=== PATIENT | female | born 1975 | race Caucasian/White ===

== ENCOUNTER 2017-01-03 22:01 | Observation (INO) ==
[2017-01-03 23:29] LABS: Bilirubin,Urine Negative (Negative); Blood,Urine Moderate (Negative); Clarity,Urine Turbid (Clear); Color,Urine Yellow (Yellow); Glucose,Urine (UA) Normal (Normal); Ketones,Urine Negative (Negative); Leukocyte Esterase,Urine Moderate (Negative); Nitrite,Urine Negative (Negative); PH,Urine 7.5 pH Units (5.0-8.0); Protein,Urine 30 mg/dL (Neg-Trace); Specific Gravity,Urine 1.023 (1.010-1.025); Urobilinogen,Urine Normal (Normal)
[2017-01-03 23:34] LABS: Amorphous Sediment,Urine Moderate (Few)
[2017-01-03 23:35] LABS: Bacteria,Urine Moderate per hpf (None-Few); Squamous Epithelial Cell,Urine Many per lpf (None-Few)
[2017-01-03] MEDS ORDERED: Ondansetron 4 MG/2 ML VIAL IVP ONE (23:39)
[2017-01-03] MEDS ORDERED: 0.9 % Sodium Chloride 1,000 ML IVC ONE (23:39)
[2017-01-03] MEDS ORDERED: Ketorolac 30 MG/ML VIAL IVP ONE (23:39)
--- NOTE | 2017-01-03 23:53 | Emergency Department Note ---
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 Urinary tract infection Qualifiers: Urinary tract infection type: site unspecified Hematuria presence: with hematuria Qualified Code(s): N39.0 - Urinary tract infection, site not specified Disposition: Admitted As Inpatient Condition: Fair Referrals: NO,PCP [Primary Care Provider] - Forms: ED Satisfaction Letter Time of Disposition: 00:58 General Adult HPI - General Chief complaint: ED Urogenital-Female Stated complaint: kidney stone Time Seen by Provider: 01/03/17 23:32 Source: patient Limitations: no limitations Nursing Notes Reviewed: Yes Vital Signs Reviewed: Yes - History of Present Illness HPI Narrative: Alert and oriented 41-year-old female presents for evaluation of "I think I have a kidney stone". The patient states that earlier this afternoon, she noticed a slight pain in her right flank. She states that ever since then, the pain has gradually worsened. She denies any prisca hematuria but states that " my urine has been getting darker". She denies any dysuria, frequency, or urgency. She also complains of being extremely nauseated and several episodes of emesis since symptoms began. She denies any abdominal pain or diarrhea. She states a history of kidney stones in the past and that these symptoms are similar to previous episodes. Pt Subjective Complaint: "Kidney stone" Onset (ago): hour(s) (Earlier this afternoon) Location: other (Right flank) Pain Severity: severe, similar to prior episodes Pain Scale: 8 Consistency: Worsening Improves with: nothing Worsens with: movement Associated symptoms: Reports: nausea/vomiting. Denies: fever/chills Treatments Prior to Arrival: none - Related Data Allergies Allergy/AdvReac Type Severity Reaction Status Date / Time codeine AdvReac Hives Verified 01/03/17 22:03 doxycycline AdvReac Hives Verified 01/03/17 22:02 All systems ED: reviewed and negative except as stated. Constitutional: Denies: fever, chills, weakness, weight change Eyes: Denies: eye pain, eye discharge, vision change ENT ED: Denies: ear pain, throat pain, dental pain, hearing loss, epistaxis, congestion, dysphagia Cardiovascular: Denies: chest pain, palpitations, dyspnea on exertion, edema, syncope Respiratory: Denies: cough, dyspnea, wheezes, hemoptysis, stridor Gastrointestinal: Denies: abdominal pain, nausea, vomiting, diarrhea, constipation, hematemesis, melena, hematochezia Genitourinary: Reports: as per HPI, other ("Dark colored urine"). Denies: dysuria, frequency, hematuria, discharge Musculoskeletal: Reports: as per HPI, other (Right flank pain). Denies: back pain, neck pain, arthralgia, myalgia Integumentary: Denies: rash, abrasion, lesions Neurological: Denies: headache, weakness, numbness, paresthesias, confusion, abnormal gait, vertigo Psychiatric: Denies: anxiety, depression, suicidal thoughts, homicidal thoughts , auditory hallucinations, visual hallucinations Endocrine: Denies: fatigue Hematological/Lymphatic: Denies: easy bleeding, easy bruising Allergic/Immunologic: Denies: facial swelling, urticaria Past Medical History - Past Medical History Attestation: Yes The following information was validated with the patient. Source: patient Medical history: Reports: kidney stones, other Psychiatric history: Reports: bipolar - Social History Smoking Status: Current every day smoker Smokeless Tobacco Status: No Alcohol use: Reports: none Drug use: Reports: none Physical Exam - General Limitations: no limitations General appearance: alert - Head Head exam: atraumatic, normocephalic, normal inspection - Eye Eye exam: Present: normal appearance, PERRL, EOMI. Absent: nystagmus - ENT ENT exam: mucous membranes moist - Neck Neck exam: Present: normal inspection, full ROM, trachea midline - Chest Chest inspection: Present: normal inspection, symmetric chest wall rise - Respiratory Respiratory exam: Present: normal lung sounds bilaterally. Absent: respiratory distress, wheezes, stridor, accessory muscle use, prolonged expiratory phase - Cardiovascular Cardiovascular exam: Present: regular rate, normal rhythm, normal heart sounds - Abdominal Exam Abdominal exam: Present: soft, Non-Tender, normal bowel sounds. Absent: tenderness, distention, guarding, rebound, rigidity - Extremities Exam Extremities exam: Present: normal inspection, full ROM. Absent: tenderness, pedal edema - Back Exam Back exam: Present: CVA tenderness (R) (Exquisite). Absent: CVA tenderness (L) - Neurological Exam Neurological exam: Present: alert, oriented X3 - Psychiatric Psychiatric exam: Present: normal affect, normal mood - Skin Skin exam: Present: warm, dry, intact, normal color Course Course Narrative: I have discussed this patient's case with Dr. Knutson. Dr. Knutson has had a [id number] evaluation with the patient. Dr. Knutson recommends consultation with the urologist for further instructions. [id number]: I spoken with Dr. Rowe, urologist principal solutions architect. Dr. Rowe has accepted the patient for admission to his service at this time. Vital Signs Temperature 97.4 F L 01/03/17 22:04 Pulse Rate 66 01/03/17 22:04 Respiratory Rate 18 01/03/17 22:04 Blood Pressure 109/74 01/03/17 22:04 O2 Sat by Pulse Oximetry 100 01/03/17 22:04 Temperature 97.4 F L 01/03/17 22:04 Pulse Rate 46 01/04/17 00:43 Respiratory Rate 18 01/04/17 00:43 Blood Pressure 101/65 01/04/17 00:43 O2 Sat by Pulse Oximetry 100 01/04/17 00:43 Oxygen Delivery Oxygen Delivery Room Air Medical Decision Making - Medical Records Medical records reviewed: Yes I reviewed the patient's medical records. - Lab Data Lab results reviewed: Yes I reviewed the patient's lab results. Lab results narrative: Laboratory Last Values WBC 9.9 K/mcL (4.3-11.1) 01/03/17 23:52 RBC 4.14 M/mcL (3.82-4.97) 01/03/17 23:52 Hgb 13.5 g/dL (11.5-15.4) 01/03/17 23:52 Hct 40.3 % (35.3-44.9) 01/03/17 23:52 MCV 97.3 fL (83.0-100.0) 01/03/17 23:52 MCH 32.6 pg (28.0-33.3) 01/03/17 23:52 MCHC 33.5 g/dL (31.6-35.5) 01/03/17 23:52 RDW 12.3 % (11.5-14.5) 01/03/17 23:52 Plt Count 185 K/mcL (140-400) 01/03/17 23:52 MPV 10.7 fL (9.4-12.4) 01/03/17 23:52 Immature Gran % 0.3 % (0-4) 01/03/17 23:52 Seg Neutrophils % 81.2 % 01/03/17 23:52 Lymphocytes % 12.6 % 01/03/17 23:52 Monocytes % 4.5 % 01/03/17 23:52 Eosinophils % 1.0 % 01/03/17 23:52 Basophils % 0.4 % 01/03/17 23:52 Neutrophils # 8.0 K/mcL (1.6-8.9) 01/03/17 23:52 Lymphocytes # 1.2 K/mcL (0.6-4.6) 01/03/17 23:52 Monocytes # 0.4 K/mcL (0.0-1.3) 01/03/17 23:52 Eosinophils # 0.1 K/mcL (0.0-0.6) 01/03/17 23:52 Basophils # 0.0 K/mcL (0.0-0.2) 01/03/17 23:52 Sodium 140 mEq/L (136-145) 01/03/17 23:52 Potassium 4.2 mEq/L (3.5-4.5) 01/03/17 23:52 Chloride 115 mEq/L (98-109) H 01/03/17 23:52 Carbon Dioxide 18 mEq/L (19-29) L 01/03/17 23:52 BUN 15 mg/dL (7-20) 01/03/17 23:52 Creatinine 1.13 mg/dL (0.57-1.11) H 01/03/17 23:52 Est GFR ( Amer) > 60 (> 60) 01/03/17 23:52 Est GFR (Non-Af Amer) 53 (> 60) L 01/03/17 23:52 BUN/Creatinine Ratio 13 (6-26) 01/03/17 23:52 Glucose 107 mg/dL (70-99) H 01/03/17 23:52 Calculated Osmolality 291 (280-300) 01/03/17 23:52 Calcium 8.9 mg/dL (8.6-10.8) 01/03/17 23:52 Urine Color Yellow (Yellow) 01/03/17 23:15 Urine Clarity Turbid (Clear) A 01/03/17 23:15 Urine pH 7.5 pH Units (5.0-8.0) 01/03/17 23:15 Ur Specific [place] 1.023 (1.010-1.025) 01/03/17 23:15 Urine Protein 30 mg/dL (Neg-Trace) H 01/03/17 23:15 Urine Glucose (UA) Normal mg/dL (Normal) 01/03/17 23:15 Urine Ketones Negative mg/dL (Negative) 01/03/17 23:15 Urine Blood Moderate (Negative) H 01/03/17 23:15 Urine Nitrite Negative (Negative) 01/03/17 23:15 Urine Bilirubin Negative (Negative) 01/03/17 23:15 Urine Urobilinogen Normal mg/dL (Normal) 01/03/17 23:15 Ur Leukocyte Esterase Moderate (Negative) H 01/03/17 23:15 Urine Microscopic RBC 5-15 per hpf (0-3) H 01/03/17 23:15 Urine Microscopic WBC 5-15 per hpf (0-3) H 01/03/17 23:15 Ur Squamous Epith Cells Many per lpf (None-Few) H 01/03/17 23:15 Amorphous Sediment Moderate (Few) H 01/03/17 23:15 Urine Bacteria Moderate per hpf (None-Few) H 01/03/17 23:15 Urine Test Negative (Negative) 01/03/17 23:15 Result diagrams: 01/03/17 23:52 01/03/17 23:52 Lab Results 01/03/17 01/03/17 01/03/17 Range/Units 23:15 23:15 23:52 WBC 9.9 (4.3-11.1) K/mcL RBC 4.14 (3.82-4.97) M/mcL Hgb 13.5 (11.5-15.4) g/dL Hct 40.3 (35.3-44.9) % MCV 97.3 (83.0-100.0) fL MCH 32.6 (28.0-33.3) pg MCHC 33.5 (31.6-35.5) g/dL RDW 12.3 (11.5-14.5) % Plt Count 185 (140-400) K/mcL MPV 10.7 (9.4-12.4) fL Immature Gran % 0.3 (0-4) % Seg Neutrophils % 81.2 % Lymphocytes % 12.6 % Monocytes % 4.5 % Eosinophils % 1.0 % Basophils % 0.4 % Neutrophils # 8.0 (1.6-8.9) K/mcL Lymphocytes # 1.2 (0.6-4.6) K/mcL Monocytes # 0.4 (0.0-1.3) K/mcL Eosinophils # 0.1 (0.0-0.6) K/mcL Basophils # 0.0 (0.0-0.2) K/mcL Sodium (136-145) mEq/L Potassium (3.5-4.5) mEq/L Chloride (98-109) mEq/L Carbon Dioxide (19-29) mEq/L BUN (7-20) mg/dL Creatinine (0.57-1.11) mg/dL Est GFR ( Amer) (> 60) Est GFR (Non-Af Amer) (> 60) BUN/Creatinine Ratio (6-26) Glucose (70-99) mg/dL Calculated Osmolality (280-300) Calcium (8.6-10.8) mg/dL Urine Color Yellow (Yellow) Urine Clarity Turbid A (Clear) Urine pH 7.5 (5.0-8.0) pH Units Ur Specific [place] 1.023 (1.010-1.025) Urine Protein 30 H (Neg-Trace) mg/dL Urine Glucose (UA) Normal (Normal) mg/dL Urine Ketones Negative (Negative) mg/dL Urine Blood Moderate H (Negative) Urine Nitrite Negative (Negative) Urine Bilirubin Negative (Negative) Urine Urobilinogen Normal (Normal) mg/dL Ur Leukocyte Esterase Moderate H (Negative) Urine Microscopic RBC 5-15 H (0-3) per hpf Urine Microscopic WBC 5-15 H (0-3) per hpf Ur Squamous Epith Cells Many H (None-Few) per lpf Amorphous Sediment Moderate H (Few) Urine Bacteria Moderate H (None-Few) per hpf Urine Test Negative (Negative) 01/03/17 Range/Units 23:52 WBC (4.3-11.1) K/mcL RBC (3.82-4.97) M/mcL Hgb (11.5-15.4) g/dL Hct (35.3-44.9) % MCV (83.0-100.0) fL MCH (28.0-33.3) pg MCHC (31.6-35.5) g/dL RDW (11.5-14.5) % Plt Count (140-400) K/mcL MPV (9.4-12.4) fL Immature Gran % (0-4) % Seg Neutrophils % % Lymphocytes % % Monocytes % % Eosinophils % % Basophils % % Neutrophils # (1.6-8.9) K/mcL Lymphocytes # (0.6-4.6) K/mcL Monocytes # (0.0-1.3) K/mcL Eosinophils # (0.0-0.6) K/mcL Basophils # (0.0-0.2) K/mcL Sodium 140 (136-145) mEq/L Potassium 4.2 (3.5-4.5) mEq/L Chloride 115 H (98-109) mEq/L Carbon Dioxide 18 L (19-29) mEq/L BUN 15 (7-20) mg/dL Creatinine 1.13 H (0.57-1.11) mg/dL Est GFR ( Amer) > 60 (> 60) Est GFR (Non-Af Amer) 53 L (> 60) BUN/Creatinine Ratio 13 (6-26) Glucose 107 H (70-99) mg/dL Calculated Osmolality 291 (280-300) Calcium 8.9 (8.6-10.8) mg/dL Urine Color (Yellow) Urine Clarity (Clear) Urine pH (5.0-8.0) pH Units Ur Specific [place] (1.010-1.025) Urine Protein (Neg-Trace) mg/dL Urine Glucose (UA) (Normal) mg/dL Urine Ketones (Negative) mg/dL Urine Blood (Negative) Urine Nitrite (Negative) Urine Bilirubin (Negative) Urine Urobilinogen (Normal) mg/dL Ur Leukocyte Esterase (Negative) Urine Microscopic RBC (0-3) per hpf Urine Microscopic WBC (0-3) per hpf Ur Squamous Epith Cells (None-Few) per lpf Amorphous Sediment (Few) Urine Bacteria (None-Few) per hpf Urine Test (Negative) - Radiology Data Radiology results reviewed: Yes I reviewed the patient's radiology results. Abdomen/Pelvis CT 01/03/17 23:39 IMPRESSION: Right hydronephrosis with 6 mm proximal right ureteral stone at or just beyond the right ureteropelvic junction. Bilateral nephrolithiasis. D/ / Ame Hutchins Cha, MD / Ame Hutchins Cha, MD Interpreting Provider: Ame Hutchins Cha, MD Attestation Statement - Attestation Attestation: I, Edil Knutson DO have provided [id number] time during the care of this patient. Detailed review the presentation, symptoms, medical history were discussed and reviewed with the mid-level provider Kelton De La Torre PA-C/[employer]. Medical intervention labs and imaging studies were reviewed in detail. See full documentation of physical exam and course of care in the mid-level provider's note. I agree with the determined course of care, medical interventio,n and disposition put forth by the mid-level provider. See below documentation for changes or alterations in documentation. . A 41-year-old female presents emergency room right-sided flank pain and discomfort. 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 Patient found a 6 mm obstructing stone in the proximal ureter. She has passed stones up to 8 mm in the past. She describes always having hydronephrosis and no other symptoms. Labs reviewed. She has no acute signs of infection or urinary process at this time. Pain to be controlled here. Patient does have bacteria and the cholesterol is in the urine. There is concern for infectious and obstructed stone. Patient be started on IV antibiotics here. Consultation placed to the on-call urologist Dr. Rowe. Disposition to be completed in conjunction with the urology consultation. Patient will be admitted for definitive management. See detailed documentation of the admission process and notes and consultations. The nurse practitioner's chart
[2017-01-04 00:02] LABS: Basophils % 0.4 %; Eosinophils # 0.1 K/mcL (0.0-0.6); Hematocrit 40.3 % (35.3-44.9); Hemoglobin 13.5 g/dL (11.5-15.4); Immature Granulocytes % 0.3 % (0-4); Lymphocytes # 1.2 K/mcL (0.6-4.6); Lymphocytes % 12.6 %; Mean Corpuscular HGB Conc 33.5 g/dL (31.6-35.5); Mean Corpuscular Hemoglobin 32.6 pg (28.0-33.3); Mean Corpuscular Volume 97.3 fL (83.0-100.0); Mean Platelet Volume 10.7 fL (9.4-12.4); Monocytes # 0.4 K/mcL (0.0-1.3); Monocytes % 4.5 %; Platelet Count 185 K/mcL (140-400); Red Blood Count 4.14 M/mcL (3.82-4.97); Red Cell Distribution Width 12.3 % (11.5-14.5); Segmented Neutrophils % 81.2 %
[2017-01-04 00:16] LABS: BUN/Creatinine Ratio 13 (6-26); Blood Urea Nitrogen 15 mg/dL (7-20); Calcium 8.9 mg/dL (8.6-10.8); Carbon Dioxide 18 mEq/L (19-29); Chloride 115 mEq/L (98-109); Glucose 107 mg/dL (70-99); Osmolality,Calculated 291 (280-300); Potassium 4.2 mEq/L (3.5-4.5); Sodium 140 mEq/L (136-145); eGFR For African Americans > 60 (> 60); eGFR For Non-African Americans 53 (> 60)
[2017-01-04] MEDS ORDERED: Ondansetron 4 MG/2 ML VIAL IVP PRN ×2 (01:07→11:22)
[2017-01-04] MEDS ORDERED: Naloxone 0.4 MG/ML INJ IVP PRN ×4 (01:07→11:22)
[2017-01-04] MEDS ORDERED: *HR* Morphine 2 MG/ML SYRINGE IVP PRN ×2 (01:07→11:22)
[2017-01-04] MEDS ORDERED: *HR* Promethazine 25 MG/ML VIAL IVP PRN ×4 (01:07→11:22)
[2017-01-04] MEDS ORDERED: 0.9 % Sodium Chloride 1,000 ML IVC SCH ×2 (01:15→11:22)
[2017-01-04] MEDS: *HR* HYDROmorphone (PF) 1 MG/ML SYRINGE IVP PRN ×2 (03:50→08:27)
--- NOTE | 2017-01-04 07:10 | Urology History & Physical ---
Date of Encounter: 01/04/17 Time of Encounter: 07:07 Assessment and Plan (1) Ureteral stone with hydronephrosis Current Visit: Yes Status: Acute plan for ureteral stent placement today. I do not feel a stone extraction is safe during this hospitalization because of the possible UTI and large proximal stone. will require staged procedure. (2) Urinary tract infection Current Visit: Yes Status: Acute Rocephin. follow cultures. Qualifiers: Urinary tract infection type: site unspecified Hematuria presence: with hematuria Qualified Code(s): N39.0 - Urinary tract infection, site not specified; R31.9 - Hematuria, unspecified History of Present Illness Chief complaint: flank pain HPI: Ms. Lozada is a 41 year old female known to service with stones. sudden onset of severe flank pain. CT scan - Right hydronephrosis with 6 mm proximal right ureteral stone at or just beyond the right ureteropelvic junction. no fever. Past Med Surg Social Fam HX - Past Medical History Medical history: kidney stones Psychiatric history: bipolar - Social History Smoking Status: Current every day smoker Packs per day: 1 Smokeless Tobacco Status: No Alcohol use: none Drug use: none - Family History Mother Hx Family Cardiac Disorders: Yes Father Hx Family Cancer: Yes (prostate) Medications and Allergies Allergies codeine Adverse Reaction (Verified 01/03/17 22:03) Hives doxycycline Adverse Reaction (Verified 01/03/17 22:02) Hives Review of Systems - Constitutional malaise, no fever(s) - EENT Nose, mouth and throat: no dizziness - Cardiovascular no chest pain - Respiratory no cough - Gastrointestinal abdominal pain, nausea, vomiting - Genitourinary Genitourinary: flank pain - Musculoskeletal back pain - Integumentary no erythema - Neurological no confusion - Psychiatric no anxiety - Hematologic/Lymphatic no easy bleeding - Allergic/Immunologic no throat swelling Exam Initial Vital Signs Temp Pulse Resp BP Pulse Ox 97.4 F L 66 18 109/74 100 01/03/17 22:04 01/03/17 22:04 01/03/17 22:04 01/03/17 22:04 01/03/17 22:04 - General physical appearance Present: well developed, well nourished - Eyes Present: PERRL - ENT Present: normal nares - Neck Present: no masses - Respiratory Present: normal respiratory effort - Cardiovascular Cardiovascular exam IM: RRR - Abdomen Abdomen: Present: soft - Integumentary Present: no rash - Neurologic Present: normal coordination - Musculoskeletal Present: normal gait (right CVa tender. ) Urology Results - Labs 01/03/17 23:52 01/03/17 23:52 Abnormal lab results Chloride 115 mEq/L (98-109) H 01/03/17 23:52 Carbon Dioxide 18 mEq/L (19-29) L 01/03/17 23:52 Creatinine 1.13 mg/dL (0.57-1.11) H 01/03/17 23:52 Est GFR (Non-Af Amer) 53 (> 60) L 01/03/17 23:52 Glucose 107 mg/dL (70-99) H 01/03/17 23:52 POC Glucose 101 (58-89) H 01/04/17 05:40 Urine Clarity Turbid (Clear) A 01/03/17 23:15 Urine Protein 30 mg/dL (Neg-Trace) H 01/03/17 23:15 Urine Blood Moderate (Negative) H 01/03/17 23:15 Ur Leukocyte Esterase Moderate (Negative) H 01/03/17 23:15 Urine Microscopic RBC 5-15 per hpf (0-3) H 01/03/17 23:15 Urine Microscopic WBC 5-15 per hpf (0-3) H 01/03/17 23:15 Ur Squamous Epith Cells Many per lpf (None-Few) H 01/03/17 23:15 Amorphous Sediment Moderate (Few) H 01/03/17 23:15 Urine Bacteria Moderate per hpf (None-Few) H 01/03/17 23:15 All other labs normal.
[2017-01-04] MEDS ORDERED: ALPRAZolam 1 MG TABLET PO PRN ×2 (07:30→11:22)
[2017-01-04] MEDS ORDERED: Sulfamethoxazole/Trimeth DS 1 EACH TABLET PO SCH (09:00)
[2017-01-04] MEDS ORDERED: Topiramate 100 MG TABLET PO SCH ×2 (09:00→21:00)
[2017-01-04] MEDS ORDERED: lamoTRIgine 100 MG TABLET PO SCH ×2 (09:00→21:00)
[2017-01-04] MEDS ORDERED: Albuterol 2.5 MG/3 ML NEBULIZER IH ONE (09:22)
[2017-01-04] MEDS ORDERED: Albuterol 2.5 MG/3 ML NEBULIZER ONE (09:24)
[2017-01-04] MEDS ORDERED: *HR* Midazolam HCl 2 MG/2 ML VIAL ONE (09:53)
[2017-01-04] MEDS ORDERED: *HR* FentaNYL (PF) 100 MCG/2 ML VIAL ONE (09:53)
[2017-01-04] MEDS ORDERED: Lidocaine -MPF 2% 2 ML VIAL ONE (09:53)
[2017-01-04] MEDS ORDERED: *HR* Propofol 200 MG/20 ML VIAL IVP ONE (09:54)
--- NOTE | 2017-01-04 10:01 | Anesthesia Evaluation PreOp ---
Date of Encounter: 01/04/17 Time of Encounter: 09:59 - Past History Planned Operation: C+P and stent Cardiac History: Denies any Significant Hx Pulmonary History: Smoker DONOR CENTER TECHNICIAN History: Other (anxiety depression) Other Medical History: Renal (stones) Anesthesia History: No Prior Anesthetic Complications, Past Anesthesia (cysto and stent) Test: Negative Alcohol Use: none Drug use: none Medications and Allergies Bactrim Ds BID 01/04/17 [History] Strattera 01/04/17 [History] Topiramate [Topamax] 600 mg PO BID 01/04/17 [History] Xanax 1 MG Tablet 1 mg PO BID PRN 01/04/17 [History] lamoTRIgine [Lamictal] 200 mg PO BID 01/04/17 [History] Allergies codeine Adverse Reaction (Verified 01/03/17 22:03) Hives doxycycline Adverse Reaction (Verified 01/03/17 22:02) Hives - Meds/Allergy Pre-op Review Medications Reviewed: Yes Allergies Reviewed: Yes Beta Blockers on Current Med List: No Anesthesia Results - Labs 01/03/17 23:52 01/03/17 23:52 Anesthesia Exam Vital Signs/O2 Sat, Most Current Temp Pulse Resp BP Pulse Ox 98.9 F 62 16 102/59 94 01/04/17 09:23 01/04/17 09:23 01/04/17 09:23 01/04/17 09:23 01/04/17 09:23 Weight: 79kg NPO (# of Hours): >8 - HEENT Pupil (Motor): Pupils equal, EOMI Mallampati: II (chipped uppernR incisor) Oral Opening: Greater than 3 - DONOR CENTER TECHNICIAN LOC: Oriented DONOR CENTER TECHNICIAN Motor: Normal RUE, Normal LUE, Normal RLE, Normal LLE, Normal Face [employer]OR CENTER TECHNICIAN Sensory: Normal: RUE, LUE, RLE, LLE, Face - Cardiac Rhythm: Regular - Pulmonary Breath Sounds: bilateral Clear Respiratory Effort: Symmetrical Anesthesia Assess/Plan ASA Score: 2 Modified Suring Scale for Level of Consciousness: Cooperative, oriented, and tranquil Anesthetic Plan: General (r/b/a discussed, questions answered, consent obtained) Monitoring Plan: Standard Monitors Recovery Plan: PACU
[2017-01-04] MEDS ORDERED: *HR* Meperidine 25 MG/ML SYRINGE IVP PRN ×2 (10:02→11:22)
[2017-01-04] MEDS ORDERED: *HR* HYDROmorphone (PF) 1 MG/ML SYRINGE IVP PRN ×3 (10:02→11:22)
[2017-01-04] MEDS ORDERED: Ringers Solution, Lactated 1,000 ML IVC SCH ×2 (10:15→11:22)
[2017-01-04] MEDS ORDERED: Dexamethasone 4 MG/ML VIAL ONE (10:29)
[2017-01-04] MEDS ORDERED: Ondansetron 4 MG/2 ML VIAL ONE (10:29)
--- NOTE | 2017-01-04 10:51 | Discharge Summary ---
Date of Encounter: 01/04/17 Time of Encounter: 10:47 - Discharge Diagnosis (1) Ureteral stone with hydronephrosis Priority: Primary Status: Resolved (2) Urinary tract infection Priority: Secondary Status: Suspected Qualifiers: Urinary tract infection type: site unspecified Hematuria presence: with hematuria Qualified Code(s): N39.0 - Urinary tract infection, site not specified; R31.9 - Hematuria, unspecified - Discharge Medications Prescriptions: Cefdinir [Omnicef] 300 mg PO BID #14 capsule Oxycodone HCl/Acetaminophen [Percocet 5-325 mg Tablet] 1 each PO Q4H PRN #15 tablet PRN Reason: Pain Phenazopyridine HCl [Pyridium] 200 mg PO TIDAC PRN #20 tab PRN Reason: burning with urination Home Medications: ALPRAZolam [Xanax 1 MG Tablet] 1 mg PO BID PRN tab 01/04/17 [Rx] Cefdinir [Omnicef] 300 mg PO BID #14 capsule 01/04/17 [Rx] Oxycodone HCl/Acetaminophen [Percocet 5-325 mg Tablet] 1 each PO Q4H PRN #15 tablet 01/04/17 [Rx] Phenazopyridine HCl [Pyridium] 200 mg PO TIDAC PRN #20 tab 01/04/17 [Rx] Strattera 01/04/17 [History] Topiramate [Topamax] 600 mg PO BID 01/04/17 [History] Topiramate [Topamax] 600 mg PO BID tab 01/04/17 [Rx] Xanax 1 MG Tablet 1 mg PO BID PRN 01/04/17 [History] lamoTRIgine [Lamictal] 200 mg PO BID 01/04/17 [History] lamoTRIgine [Lamictal] 200 mg PO BID tab 01/04/17 [Rx] Allergies/Adverse Reactions: Allergies codeine Adverse Reaction (Verified 01/03/17 22:03) Hives doxycycline Adverse Reaction (Verified 01/03/17 22:02) Hives Labs on day of discharge: Labs from last 24 hours 01/04/17 05:40 POC Glucose 101 H Date of admission: 01/04/17 01:05 Primary care physician: PCP NO Discharging clinician: Valentin Rowe Anticipated date of discharge: 01/04/17 - Patient Status Disposition: Home, Self-Care Condition: Good Functional capacity at discharge: independent ambulation Overall status at discharge: patient is progressing back to baseline - Discharge Instructions Follow Up With: NO,PCP [Primary Care Provider] - Valentin Rowe MD [Partnered Physician] - (My office will contact patient regarding follow-up.) Additional Instructions: Expect stent discomfort including urgency, frequency, burning on urination, blood in the urine, mild flank discomfort. This is all normal. Patient has no activity restrictions. Call office if temperature over 101 - Diet and Activity Activity: increase activity as tolerated Diet: advance to your usual diet - Hospital Course Hospital course: Ms. Lozada is a 41 year old female admitted with a 6 mm proximal right ureteral calculi. Ureteral stent placed on 01/04. Plan for discharge today or tomorrow depending on postoperative symptoms and vital signs. Patient has not displayed signs or symptoms of sepsis during admission - Time Spent with Patient Total time spent providing and/or coordinating discharge services: Less than 30 minutes Exam Initial Vital Signs Temp Pulse Resp BP Pulse Ox 97.4 F L 66 18 109/74 100 01/03/17 22:04 01/03/17 22:04 01/03/17 22:04 01/03/17 22:04 01/03/17 22:04 - General physical appearance Present: well developed, no distress
--- NOTE | 2017-01-04 10:59 | Operative Note ---
Date of procedure: 01/04/17 Pre-op diagnosis: Right proximal ureteral stone Post-op diagnosis: same Procedure: Cystoscopy. Right retrograde pyelogram. Right ureteral stent placement Anesthesia: GETA Surgeon: Valentin Rowe Estimated blood loss (cc): 0 Specimen: none Condition: stable Disposition: PACU Procedure in Detail: PROCEDURE IN DETAIL: Patient was taken back to the operating room, positioned supine on the operating table. Anesthesia was applied without complication. They were moved into dorsal lithotomy. Careful attention was maintained to cushion all pressure points for patient's safety. They were prepped and draped in sterile fashion. Time-out was performed with the proper patient and procedure. A 21-Syrian rigid cystoscope was inserted into the bladder without difficulty. Systematic examination of bladder revealed no abnormalities. The ureteral orifice was cannulated using a 5-Syrian ureteral Catheter and a retrograde pyelogram was performed using Isovue. Patient had a very tortuous ureter with hydroureter and hydronephrosis. Zip wire was passed through the 5 Syrian ureteral catheter and into the renal pelvis. No purulence drained from the right system. A 4.8 x 26 ureteral stent was placed over the zip wire under fluoroscopy without complication. The bladder was drained
[2017-01-04] MEDS ORDERED: XANAX 1 MG PO PRN (11:22)
[2017-01-04] MEDS ORDERED: *HR* OxyCODONE/APAP 5/325 TABLET PO PRN (11:22)
[2017-01-04 11:33] VITALS: BP 111/71
--- NOTE | 2017-01-04 14:20 | Anesthesia Evaluation Post Op ---
Date of Encounter: 01/04/17 Time of Encounter: 14:19 - Vital Signs Vital Signs: Vital Signs/O2 Sat, Most Current Temp Pulse Resp BP Pulse Ox 98.0 F 60 14 111/71 98 01/04/17 11:32 01/04/17 11:32 01/04/17 11:32 01/04/17 11:32 01/04/17 11:32 - Lungs Lungs: Clear Ascult./Percussion - Airway Airway: Non-obstructed - Cardiovascular Regular Rate - Mental Status Mental Status: Alert & Oriented, Answers Appropriately - Pain Pain Scale: 0 Pain Scale used: Numeric (1 - 10) - Nausea Vomiting Nausea Vomiting: Not Present - Hydration Hydration: Ice chips - Discharge PostOp Status: Transfer Patient to floor
[2017-01-04] MEDS ORDERED: LAMOTRIGINE 200 MG PO SCH (21:00)
[2017-01-04] MEDS ORDERED: TOPIRAMATE PO SCH (21:00)
== END 2017-01-04 12:27 | disposition home or self-care (01) ==
LOC: EMEROO 22:01 → INTOOBSV 01-04 01:05 → 3ANU 01-04 01:05
PROVIDERS: ADMIT Urology; ATTEND Urology

== ENCOUNTER 2019-02-13 01:10 | Observation (INO) ==
[2019-02-13] MEDS ORDERED: Ondansetron 4 MG/2 ML VIAL IVP ONE ×2 (02:10→05:51)
[2019-02-13] MEDS ORDERED: Ketorolac 30 MG/ML VIAL IVP ONE (02:10)
[2019-02-13] MEDS ORDERED: 0.9 % Sodium Chloride 1,000 ML IVC ONE (02:10)
[2019-02-13] MEDS ORDERED: *HR* HYDROmorphone (PF) 1 MG/ML SYRINGE IVP ONE ×2 (03:00→05:51)
[2019-02-13 03:01] LABS: Basophils # 0.1 K/mcL (0.0-0.2); Basophils % 0.5 %; Eosinophils # 0.2 K/mcL (0.0-0.6); Eosinophils % 1.5 %; Hematocrit 40.1 % (35.3-44.9); Immature Granulocytes % 0.3 % (0-4); Lymphocytes # 2.1 K/mcL (0.6-4.6); Lymphocytes % 20.7 %; Mean Corpuscular HGB Conc 32.4 g/dL (31.6-35.5); Mean Corpuscular Hemoglobin 30.9 pg (28.0-33.3); Mean Corpuscular Volume 95.2 fL (83.0-100.0); Monocytes # 0.9 K/mcL (0.0-1.3); Monocytes % 8.9 %; Platelet Count 206 K/mcL (140-400); Red Blood Count 4.21 M/mcL (3.82-4.97); Red Cell Distribution Width 12.6 % (11.5-14.5); Segmented Neutrophils % 68.1 %; White Blood Count 10.3 K/mcL (4.3-11.1)
[2019-02-13 03:05] LABS: Alanine Aminotransferase 12 Units/L (7-52); Albumin 4.3 g/dL (3.5-5.7); Albumin/Globulin Ratio 1.7 (1.1-2.2); Alkaline Phosphatase 58 Units/L (34-104); Amylase 37 Units/L (29-103); Aspartate Amino Transferase 12 Units/L (13-39); BUN/Creatinine Ratio 11 (6-26); Bilirubin,Direct 0.1 mg/dL (0.0-0.2); Bilirubin,Indirect 0.2 mg/dL (0.0-1.2); Bilirubin,Total 0.3 mg/dL (0.3-1.0); Blood Urea Nitrogen 12 mg/dL (6-20); Calcium 9.4 mg/dL (8.6-10.3); Carbon Dioxide 19 mEq/L (23-29); Chloride 115 mEq/L (98-107); Globulin 2.5 g/dL (2.4-3.5); Glucose 104 mg/dL (70-105); Lipase 27 Units/L (11-82); Osmolality,Calculated 290 (280-300); Potassium 3.9 mEq/L (3.5-5.1); Sodium 140 mEq/L (136-145); Total Protein 6.8 g/dL (6.4-8.9); eGFR For African Americans > 60 (> 60); eGFR For Non-African Americans 53 (> 60)
[2019-02-13 04:11] LABS: Bilirubin,Urine Negative (Negative); Blood,Urine Negative (Negative); Clarity,Urine Cloudy (Clear); Color,Urine Yellow (Yellow); Glucose,Urine (UA) Normal (Normal); Ketones,Urine Negative (Negative); Leukocyte Esterase,Urine Moderate (Negative); Nitrite,Urine Negative (Negative); PH,Urine 6.5 pH Units (5.0-8.0); Protein,Urine Trace mg/dL (Neg-Trace); Specific Gravity,Urine 1.022 (1.010-1.025); Urobilinogen,Urine Normal (Normal)
[2019-02-13 04:12] LABS: Bacteria,Urine Few per hpf (None-Few); Squamous Epithelial Cell,Urine Many per lpf (None-Few); WBC,Urine 30-50 per hpf (0-3)
[2019-02-13] MEDS ORDERED: Naloxone 0.4 MG/ML INJ IVP PRN ×2 (06:36→16:09)
[2019-02-13] MEDS ORDERED: cefTRIAXone 1,000 MG in Water for inj. (sterile) 10 ML IVPB SCH (07:27)
[2019-02-13] MEDS ORDERED: Ketorolac 15 MG/ML VIAL IVP PRN (08:30)
[2019-02-13] MEDS ORDERED: *HR* Propofol 200 MG/20 ML VIAL IVP ONE (13:58)
[2019-02-13] MEDS ORDERED: *HR* FentaNYL (PF) 100 MCG/2 ML VIAL ONE (13:58)
[2019-02-13] MEDS ORDERED: Ondansetron 4 MG/2 ML VIAL ONE (13:58)
[2019-02-13] MEDS ORDERED: *HR* Midazolam HCl 2 MG/2 ML VIAL ONE (13:58)
[2019-02-13] MEDS ORDERED: Lidocaine -MPF 2% 2 ML VIAL ONE (13:58)
[2019-02-13] MEDS ORDERED: Ondansetron 4 MG/2 ML VIAL IVP PRN ×2 (14:00→16:09)
[2019-02-13] MEDS ORDERED: EPHEDrine 50 MG/ML VIAL ONE (14:28)
[2019-02-13] MEDS ORDERED: Dexamethasone 4 MG/ML VIAL ONE (14:30)
[2019-02-13] MEDS ORDERED: Ketorolac 30 MG/ML VIAL ONE (14:57)
[2019-02-13] MEDS: *HR* HYDROmorphone (PF) 1 MG/ML SYRINGE IVP PRN ×4 (15:16→15:35)
[2019-02-13 18:09] VITALS: BP 99/67
[2019-02-14] MEDS ORDERED: cefTRIAXone 1,000 MG in Water for inj. (sterile) 10 ML IVPB SCH (09:00)
[2019-02-17 21:50] LABS: Calculi Mass 63 mg
== END 2019-02-13 18:24 | disposition home or self-care (01) ==
LOC: EMEROOARM 01:10 → 3BNU 01:10 → SUATTDRO 05:45 → 3BNU 06:17
PROVIDERS: ADMIT Family Medicine; ATTEND Internal Medicine

== ENCOUNTER 2019-07-22 13:55 | Inpatient (IN) ==
[2019-07-22] MEDS ORDERED: Ketorolac 30 MG/ML VIAL IVP ONE (15:41)
[2019-07-22] MEDS ORDERED: 0.9 % Sodium Chloride 1,000 ML IVC ONE ×2 (15:41→17:27)
[2019-07-22] MEDS ORDERED: Ondansetron 4 MG/2 ML VIAL IVP ONE (15:41)
[2019-07-22] MEDS ORDERED: levoFLOXacin 750 MG/150 ML 750 MG/150 ML BAG IVPB ONE (16:43)
[2019-07-22] MEDS ORDERED: Ipratropium/Albuterol Neb 3 ML IH ONE (17:27)
[2019-07-22 17:37] LABS: Basophils % 0.3 %; Hematocrit 43.5 % (35.3-44.9); Hemoglobin 14.5 g/dL (11.5-15.4); Immature Granulocytes % 0.3 % (0-4); Lymphocytes # 0.6 K/mcL (0.6-4.6); Lymphocytes % 18.5 %; Mean Corpuscular HGB Conc 33.3 g/dL (31.6-35.5); Mean Corpuscular Volume 92.9 fL (83.0-100.0); Monocytes # 0.2 K/mcL (0.0-1.3); Monocytes % 6.4 %; Neutrophils # 2.2 K/mcL (1.6-8.9); Platelet Count 75 K/mcL (140-400); Red Blood Count 4.68 M/mcL (3.82-4.97); Red Cell Distribution Width 12.6 % (11.5-14.5); Segmented Neutrophils % 74.5 %
[2019-07-22 17:55] LABS: BUN/Creatinine Ratio 20 (6-26); Blood Urea Nitrogen 21 mg/dL (6-20); Calcium 8.1 mg/dL (8.6-10.3); Carbon Dioxide 17 mEq/L (23-29); Chloride 111 mEq/L (98-107); Glucose 138 mg/dL (70-105); Osmolality,Calculated 287 (280-300); Potassium 3.3 mEq/L (3.5-5.1); Sodium 136 mEq/L (136-145); eGFR For African Americans > 60 (> 60); eGFR For Non-African Americans 57 (> 60)
[2019-07-22] MEDS ORDERED: Naloxone 0.4 MG/ML INJ IVP PRN (18:13)
[2019-07-22] MEDS ORDERED: Ipratropium/Albuterol Neb 3 ML IH PRN (18:16)
[2019-07-22] MEDS: ALPRAZolam 1 MG TABLET PO PRN (20:06)
[2019-07-22] MEDS: 0.9 % Sodium Chloride 1,000 ML IVC SCH (20:07)
[2019-07-23] MEDS: Ondansetron 4 MG/2 ML VIAL IVP PRN ×3 (01:18→17:23)
[2019-07-23] MEDS ORDERED: Acetaminophen 325 MG TABLET PO ONE (03:17)
[2019-07-23 05:42] LABS: BUN/Creatinine Ratio 15 (6-26); Blood Urea Nitrogen 13 mg/dL (6-20); Calcium 7.7 mg/dL (8.6-10.3); Carbon Dioxide 14 mEq/L (23-29); Chloride 113 mEq/L (98-107); Glucose 138 mg/dL (70-105); Osmolality,Calculated 278 (280-300); Potassium 2.9 mEq/L (3.5-5.1); Sodium 133 mEq/L (136-145); eGFR For African Americans > 60 (> 60); eGFR For Non-African Americans > 60 (> 60)
[2019-07-23 06:00] LABS: Basophils % 0.4 %; Hematocrit 34.6 % (35.3-44.9); Hemoglobin 12.6 g/dL (11.5-15.4); Immature Granulocytes % 0.9 % (0-4); Lymphocytes % 31.1 %; Mean Corpuscular HGB Conc 36.4 g/dL (31.6-35.5); Mean Corpuscular Hemoglobin 31.3 pg (28.0-33.3); Mean Platelet Volume 11.7 fL (9.4-12.4); Monocytes # 0.1 K/mcL (0.0-1.3); Monocytes % 3.4 %; Neutrophils # 1.5 K/mcL (1.6-8.9); Red Blood Count 4.02 M/mcL (3.82-4.97); Red Cell Distribution Width 12.6 % (11.5-14.5); Segmented Neutrophils % 64.2 %; White Blood Count 2.4 K/mcL (4.3-11.1)
[2019-07-23 06:02] LABS: Lymphocytes # 0.8 K/mcL (0.6-4.6); Platelet Count 71 K/mcL (140-400)
[2019-07-23 06:04] LABS: Mean Corpuscular Volume 86.1 fL (83.0-100.0)
[2019-07-23 06:22] LABS: Platelet Estimate Decreased (Normal)
[2019-07-23] MEDS: 0.9 % Sodium Chloride 1,000 ML IVC SCH ×4 (08:20→17:56)
[2019-07-23] MEDS: Potassium Chloride Elixir 20 MEQ/15 ML UDC PO SCH ×2 (09:15→20:27)
[2019-07-23] MEDS: Acetaminophen 325 MG TABLET PO PRN ×3 (09:16→20:26)
[2019-07-23] MEDS: lamoTRIgine 100 MG TABLET PO SCH ×3 (09:17→20:26)
[2019-07-23] MEDS: levoFLOXacin 750 MG/150 ML 750 MG/150 ML BAG IVPB SCH (09:17)
[2019-07-23] MEDS: Topiramate 100 MG TABLET PO SCH ×3 (09:28→20:26)
[2019-07-23] MEDS ORDERED: *HR* Promethazine 25 MG/ML VIAL IVP ONE (10:32)
[2019-07-23] MEDS ORDERED: 0.9 % Sodium Chloride 1,000 ML IVC ONE ×3 (10:32→23:30)
[2019-07-23] MEDS ORDERED: Isovue-370 500 ML BOTTLE IVP ONE (14:45)
[2019-07-23] MEDS: Piperacillin/Tazobactam 3.375 GM in 0.9 % Sodium Chloride Mini Bag 100 ML IVPB SCH ×2 (18:38→23:40)
[2019-07-23] MEDS: Ketorolac 30 MG/ML VIAL IVP PRN (20:25)
[2019-07-23] MEDS: ALPRAZolam 1 MG TABLET PO PRN (20:26)
[2019-07-23 23:36] LABS: ABG Base Excess -9 mEq/L (-2 to 3); ABG HCO3 14 mEq/L (21-27); ABG Oxygen Saturation 91 % (95-98); ABG PCO2 24 mmHg (35-45); ABG PH 7.39 pH Units (7.32-7.45); ABG PO2 59 mmHg (85-104); ABG TCO2 15 mEq/L (20-26)
[2019-07-24] MEDS: 0.9 % Sodium Chloride 1,000 ML IVC SCH ×2 (00:20→07:41)
[2019-07-24] MEDS: Ondansetron 4 MG/2 ML VIAL IVP PRN ×3 (00:32→20:01)
[2019-07-24 03:51] LABS: Hematocrit 38.1 % (35.3-44.9); Hemoglobin 13.1 g/dL (11.5-15.4); Mean Corpuscular HGB Conc 34.4 g/dL (31.6-35.5); Mean Corpuscular Hemoglobin 31.1 pg (28.0-33.3); Mean Corpuscular Volume 90.5 fL (83.0-100.0); Mean Platelet Volume 12.3 fL (9.4-12.4); Monocytes # 0.1 K/mcL (0.0-1.3); Nucleated Red Blood Cells 0.8 /100 WBC (0); Platelet Count 59 K/mcL (140-400); Red Blood Count 4.21 M/mcL (3.82-4.97); Red Cell Distribution Width 13.2 % (11.5-14.5); White Blood Count 2.4 K/mcL (4.3-11.1)
[2019-07-24 03:54] LABS: BUN/Creatinine Ratio 7 (6-26); Blood Urea Nitrogen 6 mg/dL (6-20); Calcium 6.9 mg/dL (8.6-10.3); Carbon Dioxide 12 mEq/L (23-29); Chloride 118 mEq/L (98-107); Glucose 99 mg/dL (70-105); Osmolality,Calculated 280 (280-300); Potassium 3.2 mEq/L (3.5-5.1); Sodium 136 mEq/L (136-145); eGFR For African Americans > 60 (> 60); eGFR For Non-African Americans > 60 (> 60)
[2019-07-24 04:29] LABS: Lymphocytes # 1.1 K/mcL (0.6-4.6); Neutrophils # 1.3 K/mcL (1.6-8.9); Platelet Estimate Decreased (Normal); Reactive Lymphocytes Present (Not Present)
[2019-07-24] MEDS: Ketorolac 30 MG/ML VIAL IVP PRN ×2 (04:52→13:10)
[2019-07-24] MEDS: levoFLOXacin 750 MG/150 ML 750 MG/150 ML BAG IVPB SCH (07:38)
[2019-07-24] MEDS: Topiramate 100 MG TABLET PO SCH ×2 (07:42→20:02)
[2019-07-24] MEDS: lamoTRIgine 100 MG TABLET PO SCH ×2 (07:42→20:02)
[2019-07-24 08:13] LABS: ABG Base Excess -10 mEq/L (-2 to 3); ABG HCO3 14 mEq/L (21-27); ABG Oxygen Saturation 88 % (95-98); ABG PCO2 24 mmHg (35-45); ABG PH 7.36 pH Units (7.32-7.45); ABG PO2 56 mmHg (85-104); ABG TCO2 14 mEq/L (20-26)
[2019-07-24] MEDS ORDERED: Ringers Solution, Lactated 1,000 ML IVC SCH (09:15)
[2019-07-24] MEDS ORDERED: Ringers Solution, Lactated 1,000 ML ONE (09:18)
[2019-07-24 09:39] LABS: VBG Ionized Calcium 1.08 mmol/L (1.15-1.35)
[2019-07-24 10:08] LABS: Magnesium 1.6 mg/dL (1.6-2.6)
[2019-07-24] MEDS: ALPRAZolam 1 MG TABLET PO PRN ×2 (10:31→20:01)
[2019-07-24] MEDS: Calcium Gluconate 1gm/50mL 1 GM/50 ML BAG IVPB PRN (10:44)
[2019-07-24] MEDS: Dexmedetomidine HCl 400 MCG/100 ML MLS IVC SCH (12:41)
[2019-07-24] MEDS: Potassium Phosphate 44 MEQ in 0.9 % Sodium Chloride 250 ML IVPB PRN (12:44)
[2019-07-24] MEDS ORDERED: GuaiFENesin/Codeine Oral Soln 5 ML UDC PO PRN (13:59)
[2019-07-24] MEDS: Acetaminophen 325 MG TABLET PO PRN ×2 (17:45→20:03)
[2019-07-24] MEDS: Ringers Solution, Lactated 1,000 ML IVC SCH (18:09)
[2019-07-24] MEDS: MethylPREDNISolone 40 MG/ML VIAL IVP SCH (18:09)
[2019-07-24 18:39] LABS: ABG Base Excess -10 mEq/L (-2 to 3); ABG HCO3 14 mEq/L (21-27); ABG Oxygen Saturation 96 % (95-98); ABG PCO2 27 mmHg (35-45); ABG PH 7.33 pH Units (7.32-7.45); ABG PO2 86 mmHg (85-104); ABG TCO2 15 mEq/L (20-26); Blood Gas Pressure Support 6 cm H2O
[2019-07-24] MEDS: Ibuprofen 400 MG TABLET PO PRN (20:01)
[2019-07-25] MEDS: Ringers Solution, Lactated 1,000 ML IVC SCH ×3 (02:21→23:50)
[2019-07-25 04:57] LABS: Basophils % 0.7 %; Immature Granulocytes % 0.7 % (0-4); Mean Platelet Volume 11.8 fL (9.4-12.4)
[2019-07-25 04:59] LABS: Hematocrit 37.4 % (35.3-44.9); Hemoglobin 12.6 g/dL (11.5-15.4); Immature Platelets 5.5 % (1.1-6.1); Lymphocytes # 0.8 K/mcL (0.6-4.6); Lymphocytes % 26.4 %; Mean Corpuscular HGB Conc 33.7 g/dL (31.6-35.5); Mean Corpuscular Hemoglobin 30.5 pg (28.0-33.3); Mean Corpuscular Volume 90.6 fL (83.0-100.0); Monocytes # 0.1 K/mcL (0.0-1.3); Monocytes % 3.3 %; Neutrophils # 2.1 K/mcL (1.6-8.9); Red Blood Count 4.13 M/mcL (3.82-4.97); Red Cell Distribution Width 13.8 % (11.5-14.5); Segmented Neutrophils % 68.9 %
[2019-07-25] MEDS: MethylPREDNISolone 40 MG/ML VIAL IVP SCH (05:02)
[2019-07-25 05:03] LABS: ABG Base Excess -9 mEq/L (-2 to 3); ABG HCO3 16 mEq/L (21-27); ABG Oxygen Saturation 96 % (95-98); ABG PCO2 32 mmHg (35-45); ABG PH 7.31 pH Units (7.32-7.45); ABG PO2 91 mmHg (85-104); ABG TCO2 17 mEq/L (20-26)
[2019-07-25 05:04] LABS: Platelet Count 60 K/mcL (140-400)
[2019-07-25] MEDS: *HR* Heparin 5,000 UNIT/ML VIAL SQ SCH ×2 (05:04→17:00)
[2019-07-25 05:19] LABS: Alanine Aminotransferase 21 Units/L (7-52); Albumin 2.8 g/dL (3.5-5.7); Albumin/Globulin Ratio 1.5 (1.1-2.2); Alkaline Phosphatase 60 Units/L (34-104); Aspartate Amino Transferase 56 Units/L (13-39); BUN/Creatinine Ratio 7 (6-26); Bilirubin,Total 0.3 mg/dL (0.3-1.0); Blood Urea Nitrogen 5 mg/dL (6-20); Calcium 7.8 mg/dL (8.6-10.3); Calcium 7.9 mg/dL (8.6-10.3); Carbon Dioxide 13 mEq/L (23-29); Carbon Dioxide 15 mEq/L (23-29); Chloride 122 mEq/L (98-107); Globulin 1.9 g/dL (2.4-3.5); Glucose 125 mg/dL (70-105); Osmolality,Calculated 295 (280-300); Phosphorous 3.2 mg/dL (2.7-4.5); Sodium 143 mEq/L (136-145); Total Protein 4.7 g/dL (6.4-8.9); eGFR For African Americans > 60 (> 60); eGFR For Non-African Americans > 60 (> 60)
[2019-07-25 05:28] LABS: Platelet Estimate Decreased (Normal); Reactive Lymphocytes Present (Not Present)
[2019-07-25 05:53] LABS: VBG Ionized Calcium 1.24 mmol/L (1.15-1.35)
[2019-07-25] MEDS: lamoTRIgine 100 MG TABLET PO SCH ×2 (08:33→20:22)
[2019-07-25] MEDS: Topiramate 100 MG TABLET PO SCH ×2 (08:33→20:26)
[2019-07-25] MEDS: levoFLOXacin 750 MG/150 ML 750 MG/150 ML BAG IVPB SCH (08:34)
[2019-07-25] MEDS: Ibuprofen 400 MG TABLET PO PRN ×2 (09:02→16:57)
[2019-07-25] MEDS: Dexmedetomidine HCl 400 MCG/100 ML MLS IVC SCH (11:41)
[2019-07-25] MEDS: *HR* HYDROcodone/Acet 5/325 mg TABLET PO PRN ×2 (11:45→17:40)
[2019-07-25] MEDS: Acetaminophen 325 MG TABLET PO PRN (20:22)
[2019-07-25] MEDS: ALPRAZolam 1 MG TABLET PO PRN (20:23)
[2019-07-25] MEDS: Ondansetron 4 MG/2 ML VIAL IVP PRN (20:27)
[2019-07-26] MEDS: *HR* HYDROcodone/Acet 5/325 mg TABLET PO PRN ×4 (00:54→22:17)
[2019-07-26] MEDS: Acetaminophen 325 MG TABLET PO PRN (03:57)
[2019-07-26] MEDS: Ibuprofen 400 MG TABLET PO PRN (03:57)
[2019-07-26] MEDS: *HR* Heparin 5,000 UNIT/ML VIAL SQ SCH ×2 (05:09→17:30)
[2019-07-26 05:28] LABS: Basophils % 0.1 %; Mean Corpuscular Volume 90.8 fL (83.0-100.0); Red Cell Distribution Width 14.3 % (11.5-14.5)
[2019-07-26 05:30] LABS: Hematocrit 34.5 % (35.3-44.9); Hemoglobin 11.7 g/dL (11.5-15.4); Immature Granulocytes % 0.7 % (0-4); Immature Platelets 4.2 % (1.1-6.1); Lymphocytes # 1.7 K/mcL (0.6-4.6); Lymphocytes % 23.7 %; Mean Corpuscular HGB Conc 33.9 g/dL (31.6-35.5); Mean Corpuscular Hemoglobin 30.8 pg (28.0-33.3); Monocytes # 0.4 K/mcL (0.0-1.3); Monocytes % 4.9 %; Segmented Neutrophils % 70.6 %; White Blood Count 7.1 K/mcL (4.3-11.1)
[2019-07-26 05:32] LABS: VBG Ionized Calcium 1.26 mmol/L (1.15-1.35)
[2019-07-26 05:34] LABS: Platelet Count 91 K/mcL (140-400)
[2019-07-26 05:55] LABS: BUN/Creatinine Ratio 11 (6-26); Blood Urea Nitrogen 8 mg/dL (6-20); Calcium 7.7 mg/dL (8.6-10.3); Carbon Dioxide 16 mEq/L (23-29); Chloride 119 mEq/L (98-107); Glucose 109 mg/dL (70-105); Magnesium 1.7 mg/dL (1.6-2.6); Osmolality,Calculated 297 (280-300); Phosphorous 2.3 mg/dL (2.7-4.5); Potassium 3.4 mEq/L (3.5-5.1); Sodium 144 mEq/L (136-145); eGFR For African Americans > 60 (> 60); eGFR For Non-African Americans > 60 (> 60)
[2019-07-26 05:58] LABS: Platelet Estimate Decreased (Normal); Reactive Lymphocytes Present (Not Present)
[2019-07-26] MEDS: levoFLOXacin 750 MG/150 ML 750 MG/150 ML BAG IVPB SCH (08:13)
[2019-07-26] MEDS: Topiramate 100 MG TABLET PO SCH ×2 (08:13→19:40)
[2019-07-26] MEDS: lamoTRIgine 100 MG TABLET PO SCH ×2 (08:13→19:40)
[2019-07-26] MEDS: Dexmedetomidine HCl 400 MCG/100 ML MLS IVC SCH ×2 (08:14→17:29)
[2019-07-26] MEDS: Ringers Solution, Lactated 1,000 ML IVC SCH (08:15)
[2019-07-26] MEDS: ALPRAZolam 1 MG TABLET PO PRN (08:31)
[2019-07-26] MEDS: Ondansetron 4 MG/2 ML VIAL IVP PRN ×4 (08:31→19:50)
[2019-07-26 10:59] LABS: Adenovirus Not Detected (Not Detect); Coronavirus 229E Not Detected (Not Detect)
[2019-07-26 11:00] LABS: Coronavirus HKU1 Not Detected (Not Detect); Coronavirus NL63 Not Detected (Not Detect); Coronavirus OC43 Not Detected (Not Detect); Human Metapneumovirus Not Detected (Not Detect); Human Rhinovirus/Enterovirus DETECTED (Not Detect)
[2019-07-26 11:02] LABS: Bordetella Pertussis Not Detected (Not Detect); Chlamydophila pneumoniae Not Detected (Not Detect); Influenza B Not Detected (Not Detect); Mycoplasma pneumoniae Not Detected (Not Detect); Parainfluenza Virus 1 Not Detected (Not Detect); Parainfluenza Virus 2 Not Detected (Not Detect); Parainfluenza Virus 3 Not Detected (Not Detect); Parainfluenza Virus 4 Not Detected (Not Detect); Respiratory Syncytial Virus Not Detected (Not Detect)
[2019-07-26 11:16] LABS: ABG Base Excess -7 mEq/L (-2 to 3); ABG HCO3 17 mEq/L (21-27); ABG Oxygen Saturation 98 % (95-98); ABG PCO2 27 mmHg (35-45); ABG PH 7.39 pH Units (7.32-7.45); ABG PO2 95 mmHg (85-104); ABG TCO2 18 mEq/L (20-26); Blood Gas Modality ST; Blood Gas VT 12 cc
[2019-07-26] MEDS ORDERED: *HR* Codeine Sulfate 30 MG TABLET PO PRN (14:48)
[2019-07-26] MEDS ORDERED: Morphine Sulfate Immed Rel 15 MG TABLET PO PRN (14:56)
[2019-07-26] MEDS: MethylPREDNISolone 40 MG/ML VIAL IVP SCH (17:30)
[2019-07-26] MEDS ORDERED: Furosemide 20 MG/2 ML VIAL IVP ONE (17:52)
[2019-07-26 20:49] LABS: Phosphorous 1.8 mg/dL (2.7-4.5); Potassium 3.9 mEq/L (3.5-5.1)
[2019-07-26] MEDS: Potassium Phosphate 44 MEQ in 0.9 % Sodium Chloride 250 ML IVPB PRN (22:30)
[2019-07-27] MEDS: Ondansetron 4 MG/2 ML VIAL IVP PRN (00:41)
[2019-07-27] MEDS: Dexmedetomidine HCl 400 MCG/100 ML MLS IVC SCH ×6 (04:22→23:39)
[2019-07-27 05:07] LABS: Basophils % 0.2 %; Hematocrit 33.6 % (35.3-44.9); Hemoglobin 11.3 g/dL (11.5-15.4); Immature Granulocytes % 0.7 % (0-4); Lymphocytes % 18.9 %; Mean Corpuscular HGB Conc 33.6 g/dL (31.6-35.5); Mean Corpuscular Hemoglobin 31.5 pg (28.0-33.3); Mean Corpuscular Volume 93.6 fL (83.0-100.0); Mean Platelet Volume 10.9 fL (9.4-12.4); Monocytes # 0.5 K/mcL (0.0-1.3); Monocytes % 9.7 %; Neutrophils # 3.9 K/mcL (1.6-8.9); Platelet Count 121 K/mcL (140-400); Red Blood Count 3.59 M/mcL (3.82-4.97); Red Cell Distribution Width 14.5 % (11.5-14.5); Segmented Neutrophils % 70.5 %; White Blood Count 5.5 K/mcL (4.3-11.1)
[2019-07-27 05:24] LABS: BUN/Creatinine Ratio 11 (6-26); Blood Urea Nitrogen 9 mg/dL (6-20); Calcium 8.1 mg/dL (8.6-10.3); Carbon Dioxide 17 mEq/L (23-29); Chloride 117 mEq/L (98-107); Glucose 113 mg/dL (70-105); Magnesium 2.2 mg/dL (1.6-2.6); Osmolality,Calculated 301 (280-300); Phosphorous 5.9 mg/dL (2.7-4.5); Potassium 4.2 mEq/L (3.5-5.1); Sodium 146 mEq/L (136-145); eGFR For African Americans > 60 (> 60); eGFR For Non-African Americans > 60 (> 60)
[2019-07-27 05:55] LABS: Platelet Estimate Slight Decrease (Normal); Reactive Lymphocytes Present (Not Present)
[2019-07-27] MEDS: MethylPREDNISolone 40 MG/ML VIAL IVP SCH ×2 (06:08→17:36)
[2019-07-27] MEDS: *HR* Heparin 5,000 UNIT/ML VIAL SQ SCH ×2 (06:08→17:41)
[2019-07-27] MEDS ORDERED: *HR* LORazepam 2 MG/ML VIAL IVP PRN (07:32)
[2019-07-27] MEDS: Furosemide 40 MG/4 ML VIAL IVP SCH ×2 (08:56→17:36)
[2019-07-27] MEDS: lamoTRIgine 100 MG TABLET PO SCH ×2 (08:56→19:29)
[2019-07-27] MEDS: levoFLOXacin 750 MG TABLET PO SCH (08:56)
[2019-07-27] MEDS: *HR* HYDROcodone/Acet 5/325 mg TABLET PO PRN (08:57)
[2019-07-27] MEDS: Topiramate 100 MG TABLET PO SCH ×2 (08:57→19:29)
[2019-07-27] MEDS: Piperacillin/Tazobactam 3.375 GM in 0.9 % Sodium Chloride Mini Bag 100 ML IVPB SCH ×2 (10:38→17:36)
[2019-07-27] MEDS ORDERED: Artificial Tears SOLN 15 ML BOTTLE BOTH EYES PRN (11:02)
[2019-07-27] MEDS ORDERED: *HR* FentaNYL (PF) 100 MCG/2 ML VIAL ONE (11:09)
[2019-07-27] MEDS ORDERED: *HR* FentaNYL (PF) 100 MCG/2 ML VIAL IVP ONE (11:16)
[2019-07-27] MEDS: FentaNYL (PF) 1,000 MCG in 0.9 % Sodium Chloride 80 ML IVC SCH ×3 (11:25→23:33)
[2019-07-27 12:31] LABS: ABG Base Excess -6 mEq/L (-2 to 3); ABG HCO3 20 mEq/L (21-27); ABG Oxygen Saturation 95 % (95-98); ABG PCO2 35 mmHg (35-45); ABG PH 7.35 pH Units (7.32-7.45); ABG PO2 79 mmHg (85-104); ABG TCO2 21 mEq/L (20-26); Blood Gas VT 420 cc
[2019-07-27] MEDS: Artificial Tears SOLN 15 ML BOTTLE BOTH EYES SCH ×4 (14:00→23:37)
[2019-07-27] MEDS: Chlorhexidine Rinse 15 ML MOUTHWASH MM SCH (19:28)
[2019-07-28] MEDS: Piperacillin/Tazobactam 3.375 GM in 0.9 % Sodium Chloride Mini Bag 100 ML IVPB SCH ×3 (02:17→17:00)
[2019-07-28] MEDS: Artificial Tears SOLN 15 ML BOTTLE BOTH EYES SCH ×6 (04:09→23:21)
[2019-07-28 04:37] LABS: Basophils % 0.2 %; Hematocrit 37.4 % (35.3-44.9); Hemoglobin 12.1 g/dL (11.5-15.4); Immature Granulocytes % 1.3 % (0-4); Lymphocytes # 1.3 K/mcL (0.6-4.6); Lymphocytes % 24.3 %; Mean Corpuscular HGB Conc 32.4 g/dL (31.6-35.5); Mean Corpuscular Volume 95.9 fL (83.0-100.0); Mean Platelet Volume 10.5 fL (9.4-12.4); Monocytes # 0.5 K/mcL (0.0-1.3); Monocytes % 9.1 %; Platelet Count 170 K/mcL (140-400); Red Cell Distribution Width 14.4 % (11.5-14.5); Segmented Neutrophils % 65.1 %; White Blood Count 5.3 K/mcL (4.3-11.1)
[2019-07-28] MEDS: Dexmedetomidine HCl 400 MCG/100 ML MLS IVC SCH ×4 (04:38→20:14)
[2019-07-28 04:39] LABS: Neutrophils # 3.5 K/mcL (1.6-8.9)
[2019-07-28] MEDS: FentaNYL (PF) 1,000 MCG in 0.9 % Sodium Chloride 80 ML IVC SCH (04:40)
[2019-07-28 04:41] LABS: VBG Ionized Calcium 1.08 mmol/L (1.15-1.35)
[2019-07-28 04:54] LABS: Platelet Estimate Normal (Normal); Reactive Lymphocytes Present (Not Present)
[2019-07-28 04:58] LABS: BUN/Creatinine Ratio 11 (6-26); Blood Urea Nitrogen 9 mg/dL (6-20); Calcium 8.3 mg/dL (8.6-10.3); Carbon Dioxide 19 mEq/L (23-29); Chloride 113 mEq/L (98-107); Glucose 120 mg/dL (70-105); Magnesium 2.2 mg/dL (1.6-2.6); Osmolality,Calculated 302 (280-300); Phosphorous 3.7 mg/dL (2.7-4.5); Potassium 3.7 mEq/L (3.5-5.1); Sodium 146 mEq/L (136-145); eGFR For African Americans > 60 (> 60); eGFR For Non-African Americans > 60 (> 60)
[2019-07-28] MEDS: *HR* Heparin 5,000 UNIT/ML VIAL SQ SCH ×2 (05:19→17:00)
[2019-07-28] MEDS: MethylPREDNISolone 40 MG/ML VIAL IVP SCH ×2 (05:19→17:00)
[2019-07-28 05:32] LABS: ABG Base Excess -3 mEq/L (-2 to 3); ABG HCO3 23 mEq/L (21-27); ABG Oxygen Saturation 99 % (95-98); ABG PCO2 43 mmHg (35-45); ABG PH 7.34 pH Units (7.32-7.45); ABG PO2 124 mmHg (85-104); ABG TCO2 24 mEq/L (20-26); Blood Gas Modality ASSIST CONTROL; Blood Gas VT 420 cc
[2019-07-28] MEDS: Calcium Gluconate 1gm/50mL 1 GM/50 ML BAG IVPB PRN (06:18)
[2019-07-28] MEDS: Furosemide 40 MG/4 ML VIAL IVP SCH ×2 (07:16→16:06)
[2019-07-28] MEDS: lamoTRIgine 100 MG TABLET PO SCH (08:07)
[2019-07-28] MEDS: Topiramate 100 MG TABLET PO SCH (08:07)
[2019-07-28] MEDS: Pantoprazole 40 MG VIAL IVP SCH (08:07)
[2019-07-28] MEDS: Chlorhexidine Rinse 15 ML MOUTHWASH MM SCH ×2 (08:07→19:20)
[2019-07-28] MEDS: levoFLOXacin 750 MG TABLET PO SCH (08:08)
[2019-07-28] MEDS ORDERED: Acetaminophen 650 MG RECTAL SUPP RC PRN (09:28)
[2019-07-28] MEDS ORDERED: *HR* Midazolam HCl 5 MG/5 ML VIAL IVP ONE (09:54)
[2019-07-28] MEDS ORDERED: *HR* Etomidate 40 MG/20 ML VIAL IVP ONE (09:54)
[2019-07-28] MEDS ORDERED: *HR* Succinylcholine 200 MG/10 ML VIAL IVP ONE (09:54)
[2019-07-28] MEDS: Docusate Oral Soln 100 MG/10 ML UDC GTUBE SCH (19:20)
[2019-07-28] MEDS: lamoTRIgine 100 MG TABLET GTUBE SCH (19:21)
[2019-07-28] MEDS: Topiramate 100 MG TABLET GTUBE SCH (19:21)
[2019-07-29] MEDS: Piperacillin/Tazobactam 3.375 GM in 0.9 % Sodium Chloride Mini Bag 100 ML IVPB SCH ×3 (02:23→17:13)
[2019-07-29] MEDS: Dexmedetomidine HCl 400 MCG/100 ML MLS IVC SCH ×3 (03:20→18:06)
[2019-07-29] MEDS: Artificial Tears SOLN 15 ML BOTTLE BOTH EYES SCH ×6 (03:20→23:49)
[2019-07-29 04:39] LABS: ABG Base Excess -2 mEq/L (-2 to 3); ABG HCO3 24 mEq/L (21-27); ABG Oxygen Saturation 95 % (95-98); ABG PCO2 43 mmHg (35-45); ABG PH 7.35 pH Units (7.32-7.45); ABG PO2 81 mmHg (85-104); ABG TCO2 25 mEq/L (20-26); Blood Gas Modality AF; Blood Gas VT 420 cc
[2019-07-29] MEDS: MethylPREDNISolone 40 MG/ML VIAL IVP SCH ×2 (05:52→17:14)
[2019-07-29] MEDS: *HR* Heparin 5,000 UNIT/ML VIAL SQ SCH ×2 (05:52→17:14)
[2019-07-29 06:23] LABS: Basophils % 0.3 %; Eosinophils # 0.1 K/mcL (0.0-0.6); Eosinophils % 0.8 %; Hematocrit 34.4 % (35.3-44.9); Hemoglobin 11.4 g/dL (11.5-15.4); Immature Granulocytes % 1.7 % (0-4); Lymphocytes # 1.6 K/mcL (0.6-4.6); Lymphocytes % 21.9 %; Mean Corpuscular HGB Conc 33.1 g/dL (31.6-35.5); Mean Corpuscular Hemoglobin 32.1 pg (28.0-33.3); Mean Corpuscular Volume 96.9 fL (83.0-100.0); Mean Platelet Volume 10.1 fL (9.4-12.4); Monocytes # 0.9 K/mcL (0.0-1.3); Monocytes % 11.9 %; Neutrophils # 4.6 K/mcL (1.6-8.9); Platelet Count 202 K/mcL (140-400); Red Blood Count 3.55 M/mcL (3.82-4.97); Red Cell Distribution Width 13.9 % (11.5-14.5); Segmented Neutrophils % 63.4 %; White Blood Count 7.2 K/mcL (4.3-11.1)
[2019-07-29 06:27] LABS: VBG Ionized Calcium 1.24 mmol/L (1.15-1.35)
[2019-07-29 06:45] LABS: Magnesium 2.1 mg/dL (1.6-2.6); Phosphorous 2.3 mg/dL (2.7-4.5)
[2019-07-29] MEDS: Furosemide 40 MG/4 ML VIAL IVP SCH ×2 (07:12→16:01)
[2019-07-29] MEDS: Pantoprazole 40 MG VIAL IVP SCH (08:05)
[2019-07-29] MEDS: lamoTRIgine 100 MG TABLET GTUBE SCH ×2 (08:06→20:12)
[2019-07-29] MEDS: levoFLOXacin 750 MG/150 ML 750 MG/150 ML BAG IVPB SCH (08:06)
[2019-07-29] MEDS: Docusate Oral Soln 100 MG/10 ML UDC GTUBE SCH ×2 (08:06→20:11)
[2019-07-29] MEDS: Topiramate 100 MG TABLET GTUBE SCH ×2 (08:06→20:11)
[2019-07-29] MEDS: Chlorhexidine Rinse 15 ML MOUTHWASH MM SCH ×2 (08:07→20:11)
[2019-07-29 12:59] LABS: BUN/Creatinine Ratio 19 (6-26); Blood Urea Nitrogen 17 mg/dL (6-20); Calcium 8.6 mg/dL (8.6-10.3); Carbon Dioxide 21 mEq/L (23-29); Chloride 114 mEq/L (98-107); Glucose 93 mg/dL (70-105); Osmolality,Calculated 299 (280-300); Potassium 3.4 mEq/L (3.5-5.1); Sodium 144 mEq/L (136-145); eGFR For African Americans > 60 (> 60); eGFR For Non-African Americans > 60 (> 60)
[2019-07-29] MEDS: Potassium Phosphate 44 MEQ in 0.9 % Sodium Chloride 250 ML IVPB PRN (13:44)
[2019-07-30] MEDS: Piperacillin/Tazobactam 3.375 GM in 0.9 % Sodium Chloride Mini Bag 100 ML IVPB SCH ×3 (01:21→17:37)
[2019-07-30] MEDS: Dexmedetomidine HCl 400 MCG/100 ML MLS IVC SCH ×4 (01:46→19:35)
[2019-07-30] MEDS: Artificial Tears SOLN 15 ML BOTTLE BOTH EYES SCH ×6 (04:14→23:26)
[2019-07-30 04:31] LABS: ABG Base Excess -1 mEq/L (-2 to 3); ABG HCO3 25 mEq/L (21-27); ABG Oxygen Saturation 94 % (95-98); ABG PCO2 42 mmHg (35-45); ABG PH 7.38 pH Units (7.32-7.45); ABG PO2 73 mmHg (85-104); ABG TCO2 26 mEq/L (20-26); Blood Gas Modality AF; Blood Gas VT 420 cc
[2019-07-30] MEDS: MethylPREDNISolone 40 MG/ML VIAL IVP SCH ×2 (04:58→17:37)
[2019-07-30] MEDS: *HR* Heparin 5,000 UNIT/ML VIAL SQ SCH ×2 (04:58→17:37)
[2019-07-30 05:46] LABS: VBG Ionized Calcium 1.15 mmol/L (1.15-1.35)
[2019-07-30 05:46] LABS: Basophils % 0.2 %; Eosinophils # 0.1 K/mcL (0.0-0.6); Eosinophils % 1.1 %; Hematocrit 34.6 % (35.3-44.9); Hemoglobin 11.5 g/dL (11.5-15.4); Lymphocytes # 1.3 K/mcL (0.6-4.6); Lymphocytes % 15.2 %; Mean Corpuscular HGB Conc 33.2 g/dL (31.6-35.5); Mean Corpuscular Hemoglobin 30.8 pg (28.0-33.3); Mean Corpuscular Volume 92.8 fL (83.0-100.0); Mean Platelet Volume 9.9 fL (9.4-12.4); Monocytes # 1.1 K/mcL (0.0-1.3); Monocytes % 12.7 %; Neutrophils # 5.8 K/mcL (1.6-8.9); Platelet Count 225 K/mcL (140-400); Red Blood Count 3.73 M/mcL (3.82-4.97); Red Cell Distribution Width 13.8 % (11.5-14.5); Segmented Neutrophils % 68.8 %; White Blood Count 8.5 K/mcL (4.3-11.1)
[2019-07-30 06:06] LABS: BUN/Creatinine Ratio 28 (6-26); Blood Urea Nitrogen 22 mg/dL (6-20); Calcium 8.4 mg/dL (8.6-10.3); Carbon Dioxide 23 mEq/L (23-29); Chloride 110 mEq/L (98-107); Glucose 120 mg/dL (70-105); Magnesium 1.9 mg/dL (1.6-2.6); Osmolality,Calculated 305 (280-300); Phosphorous 2.7 mg/dL (2.7-4.5); Sodium 145 mEq/L (136-145); eGFR For African Americans > 60 (> 60); eGFR For Non-African Americans > 60 (> 60)
[2019-07-30] MEDS ORDERED: Potassium Chloride Elixir 20 MEQ/15 ML UDC GTUBE PRN (06:09)
[2019-07-30] MEDS: levoFLOXacin 750 MG/150 ML 750 MG/150 ML BAG IVPB SCH (08:36)
[2019-07-30] MEDS: Chlorhexidine Rinse 15 ML MOUTHWASH MM SCH ×2 (08:37→20:25)
[2019-07-30] MEDS: Furosemide 40 MG/4 ML VIAL IVP SCH ×2 (08:37→17:37)
[2019-07-30] MEDS: Pantoprazole 40 MG VIAL IVP SCH (08:37)
[2019-07-30] MEDS: lamoTRIgine 100 MG TABLET GTUBE SCH ×2 (10:45→20:25)
[2019-07-30] MEDS: Topiramate 100 MG TABLET GTUBE SCH ×2 (10:45→20:25)
[2019-07-30] MEDS: Docusate Oral Soln 100 MG/10 ML UDC GTUBE SCH ×2 (10:46→20:25)
[2019-07-30 13:59] LABS: Phosphorous 2.7 mg/dL (2.7-4.5); Potassium 3.2 mEq/L (3.5-5.1)
[2019-07-30] MEDS: Potassium Phosphate 44 MEQ in 0.9 % Sodium Chloride 250 ML IVPB PRN (16:17)
[2019-07-30 16:28] LABS: Appearance of Body Fluid Cloudy (Clear); Volume of Body Fluid 22 mL
[2019-07-30] MEDS ORDERED: QUEtiapine Fumarate 25 MG TABLET PO SCH (21:00)
[2019-07-31] MEDS: Dexmedetomidine HCl 400 MCG/100 ML MLS IVC SCH ×5 (01:26→19:35)
[2019-07-31] MEDS: Piperacillin/Tazobactam 3.375 GM in 0.9 % Sodium Chloride Mini Bag 100 ML IVPB SCH ×3 (02:22→17:16)
[2019-07-31] MEDS: Artificial Tears SOLN 15 ML BOTTLE BOTH EYES SCH ×6 (04:38→22:54)
[2019-07-31 04:49] LABS: ABG Base Excess -1 mEq/L (-2 to 3); ABG HCO3 24 mEq/L (21-27); ABG Oxygen Saturation 94 % (95-98); ABG PCO2 40 mmHg (35-45); ABG PH 7.38 pH Units (7.32-7.45); ABG PO2 73 mmHg (85-104); ABG TCO2 25 mEq/L (20-26); Blood Gas VT 420 cc
[2019-07-31] MEDS: MethylPREDNISolone 40 MG/ML VIAL IVP SCH ×2 (05:29→17:15)
[2019-07-31] MEDS: *HR* Heparin 5,000 UNIT/ML VIAL SQ SCH ×2 (05:29→17:16)
[2019-07-31 05:52] LABS: Basophils # 0.1 K/mcL (0.0-0.2); Basophils % 0.4 %; Eosinophils # 0.2 K/mcL (0.0-0.6); Eosinophils % 1.3 %; Hematocrit 36.5 % (35.3-44.9); Immature Granulocytes % 2.2 % (0-4); Lymphocytes # 1.2 K/mcL (0.6-4.6); Lymphocytes % 9.7 %; Mean Corpuscular HGB Conc 32.9 g/dL (31.6-35.5); Mean Corpuscular Hemoglobin 30.6 pg (28.0-33.3); Mean Corpuscular Volume 93.1 fL (83.0-100.0); Mean Platelet Volume 10.1 fL (9.4-12.4); Monocytes # 1.4 K/mcL (0.0-1.3); Monocytes % 11.2 %; Neutrophils # 9.2 K/mcL (1.6-8.9); Platelet Count 265 K/mcL (140-400); Red Blood Count 3.92 M/mcL (3.82-4.97); Red Cell Distribution Width 13.9 % (11.5-14.5); Segmented Neutrophils % 75.2 %; White Blood Count 12.2 K/mcL (4.3-11.1)
[2019-07-31 05:54] LABS: VBG Ionized Calcium 1.15 mmol/L (1.15-1.35)
[2019-07-31 06:13] LABS: BUN/Creatinine Ratio 31 (6-26); Blood Urea Nitrogen 26 mg/dL (6-20); Calcium 8.5 mg/dL (8.6-10.3); Carbon Dioxide 24 mEq/L (23-29); Chloride 111 mEq/L (98-107); Glucose 118 mg/dL (70-105); Magnesium 2.2 mg/dL (1.6-2.6); Osmolality,Calculated 304 (280-300); Phosphorous 3.1 mg/dL (2.7-4.5); Potassium 3.3 mEq/L (3.5-5.1); Sodium 144 mEq/L (136-145); eGFR For African Americans > 60 (> 60); eGFR For Non-African Americans > 60 (> 60)
[2019-07-31] MEDS ORDERED: Potassium Chloride Elixir 20 MEQ/15 ML UDC GTUBE ONE ×2 (06:34→16:42)
[2019-07-31] MEDS: Pantoprazole 40 MG VIAL IVP SCH (08:27)
[2019-07-31] MEDS: lamoTRIgine 100 MG TABLET GTUBE SCH ×2 (08:27→19:24)
[2019-07-31] MEDS: Topiramate 100 MG TABLET GTUBE SCH ×2 (08:27→19:24)
[2019-07-31] MEDS: Docusate Oral Soln 100 MG/10 ML UDC GTUBE SCH ×2 (08:27→19:24)
[2019-07-31] MEDS: Furosemide 40 MG/4 ML VIAL IVP SCH ×2 (08:27→16:29)
[2019-07-31] MEDS: Chlorhexidine Rinse 15 ML MOUTHWASH MM SCH ×2 (08:27→19:24)
[2019-07-31] MEDS: Nystatin Cream 15 GM TUBE TP SCH ×2 (08:42→19:26)
[2019-07-31] MEDS: Bisacodyl 10 MG RECTAL SUPPOSITORY RC SCH (16:17)
[2019-07-31] MEDS: *HR* LORazepam 2 MG/ML VIAL IVP SCH ×2 (16:28→22:55)
[2019-07-31] MEDS: QUEtiapine Fumarate 25 MG TABLET PO SCH (19:24)
[2019-08-01] MEDS: Dexmedetomidine HCl 400 MCG/100 ML MLS IVC SCH ×5 (01:03→23:25)
[2019-08-01] MEDS: Piperacillin/Tazobactam 3.375 GM in 0.9 % Sodium Chloride Mini Bag 100 ML IVPB SCH ×3 (01:51→17:22)
[2019-08-01] MEDS: Artificial Tears SOLN 15 ML BOTTLE BOTH EYES SCH ×5 (03:01→20:50)
[2019-08-01 05:01] LABS: ABG Base Excess -1 mEq/L (-2 to 3); ABG HCO3 25 mEq/L (21-27); ABG Oxygen Saturation 92 % (95-98); ABG PCO2 42 mmHg (35-45); ABG PH 7.38 pH Units (7.32-7.45); ABG PO2 65 mmHg (85-104); ABG TCO2 26 mEq/L (20-26); Blood Gas VT 420 cc
[2019-08-01] MEDS: *HR* Heparin 5,000 UNIT/ML VIAL SQ SCH ×2 (05:33→17:09)
[2019-08-01] MEDS: MethylPREDNISolone 40 MG/ML VIAL IVP SCH ×2 (05:33→17:09)
[2019-08-01] MEDS: Topiramate 100 MG TABLET GTUBE SCH ×2 (07:55→20:50)
[2019-08-01] MEDS: lamoTRIgine 100 MG TABLET GTUBE SCH ×2 (07:55→20:51)
[2019-08-01] MEDS: Furosemide 40 MG/4 ML VIAL IVP SCH ×2 (07:55→16:16)
[2019-08-01] MEDS: *HR* LORazepam 2 MG/ML VIAL IVP SCH ×2 (07:56→16:16)
[2019-08-01] MEDS: Pantoprazole 40 MG VIAL IVP SCH (07:56)
[2019-08-01] MEDS: Chlorhexidine Rinse 15 ML MOUTHWASH MM SCH ×2 (07:56→20:50)
[2019-08-01 08:22] LABS: Basophils # 0.1 K/mcL (0.0-0.2); Basophils % 0.4 %; Eosinophils # 0.1 K/mcL (0.0-0.6); Eosinophils % 0.7 %; Hematocrit 35.8 % (35.3-44.9); Hemoglobin 11.7 g/dL (11.5-15.4); Immature Granulocytes % 2.8 % (0-4); Lymphocytes # 1.2 K/mcL (0.6-4.6); Lymphocytes % 7.7 %; Mean Corpuscular HGB Conc 32.7 g/dL (31.6-35.5); Mean Corpuscular Volume 94.7 fL (83.0-100.0); Mean Platelet Volume 10.4 fL (9.4-12.4); Monocytes # 0.9 K/mcL (0.0-1.3); Neutrophils # 12.4 K/mcL (1.6-8.9); Platelet Count 288 K/mcL (140-400); Red Blood Count 3.78 M/mcL (3.82-4.97); Red Cell Distribution Width 14.1 % (11.5-14.5); Segmented Neutrophils % 82.4 %
[2019-08-01 08:29] LABS: Albumin 3.2 g/dL (3.5-5.7); Bilirubin,Direct 0.2 mg/dL (0.0-0.2); Bilirubin,Indirect 0.3 mg/dL (0.0-1.0); Bilirubin,Total 0.5 mg/dL (0.3-1.0); Globulin 3.2 g/dL (2.4-3.5); Total Protein 6.4 g/dL (6.4-8.9)
[2019-08-01 08:30] LABS: BUN/Creatinine Ratio 36 (6-26); Blood Urea Nitrogen 27 mg/dL (6-20); Calcium 8.6 mg/dL (8.6-10.3); Carbon Dioxide 20 mEq/L (23-29); Chloride 115 mEq/L (98-107); Glucose 144 mg/dL (70-105); Magnesium 2.1 mg/dL (1.6-2.6); Osmolality,Calculated 308 (280-300); Phosphorous 2.1 mg/dL (2.7-4.5); Potassium 3.9 mEq/L (3.5-5.1); Sodium 145 mEq/L (136-145); eGFR For African Americans > 60 (> 60); eGFR For Non-African Americans > 60 (> 60)
[2019-08-01 08:35] LABS: Bilirubin,Urine Negative (Negative); Blood,Urine Negative (Negative); Clarity,Urine Clear (Clear); Color,Urine Yellow (Yellow); Glucose,Urine (UA) Normal (Normal); Ketones,Urine Negative (Negative); Leukocyte Esterase,Urine Negative (Negative); Nitrite,Urine Negative (Negative); Protein,Urine Negative (Neg-Trace); Specific Gravity,Urine 1.012 (1.010-1.025); Urobilinogen,Urine Normal (Normal)
[2019-08-01] MEDS ORDERED: Isovue-370 500 ML BOTTLE IVP ONE (08:58)
[2019-08-01] MEDS: Docusate Oral Soln 100 MG/10 ML UDC GTUBE SCH ×2 (09:14→20:50)
[2019-08-01] MEDS: Bisacodyl 10 MG RECTAL SUPPOSITORY RC SCH (09:15)
[2019-08-01] MEDS: Fluconazole 200 MG/100 ML 200 MG/100 ML BAG IVPB SCH (09:22)
[2019-08-01] MEDS: Nystatin Cream 15 GM TUBE TP SCH ×2 (09:23→20:51)
[2019-08-01 15:32] LABS: Influenza A Subtype 2009 H1 DETECTED (Not Detect)
[2019-08-01] MEDS: Potassium Phosphate 44 MEQ in 0.9 % Sodium Chloride 250 ML IVPB PRN (17:11)
[2019-08-01] MEDS: QUEtiapine Fumarate 25 MG TABLET PO SCH (20:51)
[2019-08-02] MEDS: *HR* LORazepam 2 MG/ML VIAL IVP SCH ×3 (00:40→14:46)
[2019-08-02] MEDS: Artificial Tears SOLN 15 ML BOTTLE BOTH EYES SCH ×7 (00:40→23:58)
[2019-08-02] MEDS: Piperacillin/Tazobactam 3.375 GM in 0.9 % Sodium Chloride Mini Bag 100 ML IVPB SCH ×3 (01:08→17:01)
[2019-08-02 04:26] LABS: Basophils # 0.1 K/mcL (0.0-0.2); Basophils % 0.5 %; Eosinophils # 0.1 K/mcL (0.0-0.6); Eosinophils % 0.5 %; Hematocrit 35.2 % (35.3-44.9); Hemoglobin 11.5 g/dL (11.5-15.4); Immature Granulocytes % 1.9 % (0-4); Lymphocytes # 1.9 K/mcL (0.6-4.6); Lymphocytes % 13.8 %; Mean Corpuscular HGB Conc 32.7 g/dL (31.6-35.5); Mean Corpuscular Hemoglobin 30.7 pg (28.0-33.3); Mean Corpuscular Volume 93.9 fL (83.0-100.0); Mean Platelet Volume 10.4 fL (9.4-12.4); Monocytes # 1.2 K/mcL (0.0-1.3); Monocytes % 8.9 %; Neutrophils # 10.2 K/mcL (1.6-8.9); Platelet Count 283 K/mcL (140-400); Red Blood Count 3.75 M/mcL (3.82-4.97); Red Cell Distribution Width 13.7 % (11.5-14.5); Segmented Neutrophils % 74.4 %; White Blood Count 13.7 K/mcL (4.3-11.1)
[2019-08-02 04:40] LABS: Alanine Aminotransferase 60 Units/L (7-52); Albumin/Globulin Ratio 0.9 (1.1-2.2); Alkaline Phosphatase 167 Units/L (34-104); Aspartate Amino Transferase 34 Units/L (13-39); BUN/Creatinine Ratio 46 (6-26); Bilirubin,Total 0.6 mg/dL (0.3-1.0); Blood Urea Nitrogen 28 mg/dL (6-20); Calcium 8.5 mg/dL (8.6-10.3); Carbon Dioxide 20 mEq/L (23-29); Chloride 115 mEq/L (98-107); Globulin 3.2 g/dL (2.4-3.5); Glucose 111 mg/dL (70-105); Osmolality,Calculated 302 (280-300); Phosphorous 3.1 mg/dL (2.7-4.5); Potassium 3.7 mEq/L (3.5-5.1); Sodium 143 mEq/L (136-145); Total Protein 6.2 g/dL (6.4-8.9); eGFR For African Americans > 60 (> 60); eGFR For Non-African Americans > 60 (> 60)
[2019-08-02] MEDS ORDERED: Scopolamine Patch 1.5 MG PATCH.TD72 TD PRN (04:40)
[2019-08-02 04:57] LABS: ABG Base Excess -3 mEq/L (-2 to 3); ABG HCO3 23 mEq/L (21-27); ABG Oxygen Saturation 95 % (95-98); ABG PCO2 41 mmHg (35-45); ABG PH 7.35 pH Units (7.32-7.45); ABG PO2 82 mmHg (85-104); ABG TCO2 24 mEq/L (20-26); Blood Gas Modality AF; Blood Gas VT 420 cc
[2019-08-02] MEDS: Dexmedetomidine HCl 400 MCG/100 ML MLS IVC SCH ×4 (05:41→20:53)
[2019-08-02] MEDS: MethylPREDNISolone 40 MG/ML VIAL IVP SCH ×2 (05:43→17:01)
[2019-08-02] MEDS: *HR* Heparin 5,000 UNIT/ML VIAL SQ SCH ×2 (05:43→17:01)
[2019-08-02] MEDS: Nystatin Cream 15 GM TUBE TP SCH ×2 (07:37→20:52)
[2019-08-02] MEDS: Fluconazole 200 MG/100 ML 200 MG/100 ML BAG IVPB SCH (07:37)
[2019-08-02] MEDS: Pantoprazole 40 MG VIAL IVP SCH (07:38)
[2019-08-02] MEDS: Chlorhexidine Rinse 15 ML MOUTHWASH MM SCH ×2 (07:38→20:52)
[2019-08-02] MEDS: Furosemide 40 MG/4 ML VIAL IVP SCH (07:38)
[2019-08-02] MEDS: lamoTRIgine 100 MG TABLET GTUBE SCH ×2 (07:39→20:53)
[2019-08-02] MEDS: Bisacodyl 10 MG RECTAL SUPPOSITORY RC SCH (07:39)
[2019-08-02] MEDS: Topiramate 100 MG TABLET GTUBE SCH ×2 (07:40→20:53)
[2019-08-02] MEDS ORDERED: Aminoglycoside Consult 1 EACH MC ONE (08:05)
[2019-08-02] MEDS: Docusate Oral Soln 100 MG/10 ML UDC GTUBE SCH ×2 (09:34→20:52)
[2019-08-02] MEDS: Furosemide 20 MG/2 ML VIAL IVP SCH (17:03)
[2019-08-02 17:08] LABS: BUN/Creatinine Ratio 43 (6-26); Blood Urea Nitrogen 26 mg/dL (6-20); Carbon Dioxide 20 mEq/L (23-29); Chloride 115 mEq/L (98-107); Glucose 105 mg/dL (70-105); Magnesium 1.9 mg/dL (1.6-2.6); Osmolality,Calculated 299 (280-300); Potassium 3.8 mEq/L (3.5-5.1); Sodium 142 mEq/L (136-145); eGFR For African Americans > 60 (> 60); eGFR For Non-African Americans > 60 (> 60)
[2019-08-02] MEDS: Potassium Chloride Elixir 20 MEQ/15 ML UDC GTUBE SCH (20:51)
[2019-08-02] MEDS: Miconazole 2% ointment 141 APPL/141 GM TUBE TP SCH (20:52)
[2019-08-02] MEDS: QUEtiapine Fumarate 25 MG TABLET PO SCH (20:53)
[2019-08-02 21:29] LABS: Appearance of Body Fluid Cloudy (Clear); Volume of Body Fluid 26 mL
[2019-08-03] MEDS: *HR* LORazepam 2 MG/ML VIAL IVP SCH ×2 (00:03→06:45)
[2019-08-03] MEDS: Piperacillin/Tazobactam 3.375 GM in 0.9 % Sodium Chloride Mini Bag 100 ML IVPB SCH ×3 (02:06→16:12)
[2019-08-03] MEDS: Dexmedetomidine HCl 400 MCG/100 ML MLS IVC SCH (03:30)
[2019-08-03] MEDS: Artificial Tears SOLN 15 ML BOTTLE BOTH EYES SCH ×4 (03:53→14:06)
[2019-08-03 04:57] LABS: ABG Base Excess -3 mEq/L (-2 to 3); ABG HCO3 22 mEq/L (21-27); ABG Oxygen Saturation 94 % (95-98); ABG PCO2 40 mmHg (35-45); ABG PH 7.36 pH Units (7.32-7.45); ABG PO2 76 mmHg (85-104); ABG TCO2 24 mEq/L (20-26); Blood Gas Modality AF; Blood Gas VT 420 cc
[2019-08-03] MEDS: *HR* Heparin 5,000 UNIT/ML VIAL SQ SCH ×2 (05:13→16:13)
[2019-08-03] MEDS: MethylPREDNISolone 40 MG/ML VIAL IVP SCH (05:13)
[2019-08-03 05:21] LABS: Basophils # 0.1 K/mcL (0.0-0.2); Basophils % 0.5 %; Eosinophils # 0.1 K/mcL (0.0-0.6); Eosinophils % 0.7 %; Hematocrit 38.6 % (35.3-44.9); Immature Granulocytes % 1.3 % (0-4); Lymphocytes # 2.4 K/mcL (0.6-4.6); Lymphocytes % 14.9 %; Mean Corpuscular HGB Conc 31.1 g/dL (31.6-35.5); Mean Corpuscular Hemoglobin 30.8 pg (28.0-33.3); Monocytes # 1.1 K/mcL (0.0-1.3); Monocytes % 6.5 %; Neutrophils # 12.3 K/mcL (1.6-8.9); Platelet Count 281 K/mcL (140-400); Red Cell Distribution Width 13.5 % (11.5-14.5); Segmented Neutrophils % 76.1 %; White Blood Count 16.1 K/mcL (4.3-11.1)
[2019-08-03 05:39] LABS: Albumin 3.3 g/dL (3.5-5.7); Albumin/Globulin Ratio 0.9 (1.1-2.2); BUN/Creatinine Ratio 41 (6-26); Bilirubin,Direct 0.2 mg/dL (0.0-0.2); Bilirubin,Indirect 0.4 mg/dL (0.0-1.0); Bilirubin,Total 0.6 mg/dL (0.3-1.0); Blood Urea Nitrogen 28 mg/dL (6-20); Calcium 9.3 mg/dL (8.6-10.3); Carbon Dioxide 20 mEq/L (23-29); Chloride 113 mEq/L (98-107); Globulin 3.6 g/dL (2.4-3.5); Glucose 98 mg/dL (70-105); Osmolality,Calculated 299 (280-300); Sodium 142 mEq/L (136-145); Total Protein 6.9 g/dL (6.4-8.9); eGFR For African Americans > 60 (> 60); eGFR For Non-African Americans > 60 (> 60)
[2019-08-03] MEDS: Furosemide 20 MG/2 ML VIAL IVP SCH ×2 (06:45→16:13)
[2019-08-03] MEDS: Miconazole 2% ointment 141 APPL/141 GM TUBE TP SCH ×3 (06:50→20:32)
[2019-08-03] MEDS: Docusate Oral Soln 100 MG/10 ML UDC GTUBE SCH (06:56)
[2019-08-03] MEDS: Nystatin Cream 15 GM TUBE TP SCH ×2 (06:57→20:32)
[2019-08-03] MEDS: Bisacodyl 10 MG RECTAL SUPPOSITORY RC SCH (06:57)
[2019-08-03] MEDS: lamoTRIgine 100 MG TABLET GTUBE SCH (07:01)
[2019-08-03] MEDS: Chlorhexidine Rinse 15 ML MOUTHWASH MM SCH (07:01)
[2019-08-03] MEDS: Potassium Chloride Elixir 20 MEQ/15 ML UDC GTUBE SCH (07:01)
[2019-08-03] MEDS: Pantoprazole 40 MG VIAL IVP SCH (07:01)
[2019-08-03] MEDS: Fluconazole 200 MG/100 ML 200 MG/100 ML BAG IVPB SCH (07:02)
[2019-08-03] MEDS: Topiramate 100 MG TABLET GTUBE SCH (07:02)
[2019-08-03] MEDS ORDERED: Scopolamine Patch 1.5 MG PATCH.TD72 TD SCH (09:15)
[2019-08-03] MEDS ORDERED: ALPRAZolam 0.5 MG TABLET PO PRN (09:18)
[2019-08-03] MEDS: Ipratropium/Albuterol Neb 3 ML IH SCH ×4 (11:25→23:27)
[2019-08-03] MEDS ORDERED: Fluconazole 200 MG/100 ML 200 MG/100 ML BAG IVPB ONE (12:00)
[2019-08-03] MEDS: Docusate Oral Soln 100 MG/10 ML UDC PO SCH (20:33)
[2019-08-03] MEDS: lamoTRIgine 100 MG TABLET PO SCH (20:33)
[2019-08-03] MEDS: QUEtiapine Fumarate 25 MG TABLET PO SCH (20:33)
[2019-08-03] MEDS: Potassium Chloride Elixir 20 MEQ/15 ML UDC PO SCH (20:33)
[2019-08-03] MEDS: Topiramate 100 MG TABLET PO SCH (20:33)
[2019-08-03] MEDS ORDERED: ALPRAZolam 0.5 MG TABLET PO SCH (21:00)
[2019-08-03] MEDS ORDERED: *HR* LORazepam 2 MG/ML VIAL IVP PRN (22:41)
[2019-08-04] MEDS: Piperacillin/Tazobactam 3.375 GM in 0.9 % Sodium Chloride Mini Bag 100 ML IVPB SCH ×4 (02:01→17:34)
[2019-08-04] MEDS: Ipratropium/Albuterol Neb 3 ML IH SCH ×2 (03:54→07:48)
[2019-08-04 04:47] LABS: Basophils # 0.1 K/mcL (0.0-0.2); Basophils % 0.7 %; Eosinophils % 0.2 %; Hematocrit 37.1 % (35.3-44.9); Immature Granulocytes % 3.3 % (0-4); Lymphocytes # 1.7 K/mcL (0.6-4.6); Lymphocytes % 13.5 %; Mean Corpuscular HGB Conc 32.3 g/dL (31.6-35.5); Mean Corpuscular Hemoglobin 30.5 pg (28.0-33.3); Mean Corpuscular Volume 94.4 fL (83.0-100.0); Mean Platelet Volume 10.4 fL (9.4-12.4); Monocytes # 1.1 K/mcL (0.0-1.3); Monocytes % 8.8 %; Neutrophils # 9.2 K/mcL (1.6-8.9); Platelet Count 312 K/mcL (140-400); Red Blood Count 3.93 M/mcL (3.82-4.97); Red Cell Distribution Width 13.3 % (11.5-14.5); Segmented Neutrophils % 73.5 %; White Blood Count 12.5 K/mcL (4.3-11.1)
[2019-08-04 05:07] LABS: BUN/Creatinine Ratio 41 (6-26); Blood Urea Nitrogen 31 mg/dL (6-20); Calcium 9.5 mg/dL (8.6-10.3); Carbon Dioxide 19 mEq/L (23-29); Chloride 114 mEq/L (98-107); Glucose 108 mg/dL (70-105); Magnesium 2.1 mg/dL (1.6-2.6); Osmolality,Calculated 307 (280-300); Potassium 3.1 mEq/L (3.5-5.1); Sodium 145 mEq/L (136-145); eGFR For African Americans > 60 (> 60); eGFR For Non-African Americans > 60 (> 60)
[2019-08-04] MEDS: *HR* Heparin 5,000 UNIT/ML VIAL SQ SCH ×2 (05:20→17:34)
[2019-08-04] MEDS ORDERED: Potassium Chloride 40 MEQ, Lidocaine 1% 2 ML in 0.9 % Sodium Chloride 500 ML IVPB ONE (07:01)
[2019-08-04] MEDS: Bisacodyl 10 MG RECTAL SUPPOSITORY RC SCH (07:52)
[2019-08-04 08:37] LABS: ANA IgG by ELISA DETECTED (None Detected)
[2019-08-04] MEDS: lamoTRIgine 100 MG TABLET PO SCH ×2 (08:45→21:48)
[2019-08-04] MEDS: Topiramate 100 MG TABLET PO SCH ×2 (08:45→21:47)
[2019-08-04] MEDS: Docusate Oral Soln 100 MG/10 ML UDC PO SCH (08:45)
[2019-08-04] MEDS: Pantoprazole 40 MG VIAL IVP SCH (08:46)
[2019-08-04] MEDS: Furosemide 20 MG/2 ML VIAL IVP SCH (08:46)
[2019-08-04] MEDS: Nystatin Cream 15 GM TUBE TP SCH ×2 (08:47→21:48)
[2019-08-04] MEDS: Miconazole 2% ointment 141 APPL/141 GM TUBE TP SCH ×3 (08:47→21:48)
[2019-08-04] MEDS: Potassium Chloride Elixir 20 MEQ/15 ML UDC PO SCH (08:47)
[2019-08-04] MEDS ORDERED: MethylPREDNISolone 40 MG/ML VIAL IVP SCH (09:00)
[2019-08-04] MEDS ORDERED: Fluconazole 400 MG/200 ML 400 MG/200 ML BAG IVPB SCH (09:00)
[2019-08-04] MEDS ORDERED: predniSONE 20 MG TABLET PO SCH (09:15)
[2019-08-04] MEDS ORDERED: Naloxone 0.4 MG/ML INJ IVP PRN (09:16)
[2019-08-04] MEDS: ALPRAZolam 0.5 MG TABLET PO SCH ×2 (12:23→21:47)
[2019-08-04] MEDS ORDERED: Potassium Chloride Elixir 20 MEQ/15 ML UDC PO SCH (17:00)
[2019-08-04] MEDS: QUEtiapine Fumarate 25 MG TABLET PO SCH (21:47)
[2019-08-04] MEDS ORDERED: Melatonin 3 MG TABLET PO ONE (23:05)
[2019-08-05] MEDS: Piperacillin/Tazobactam 3.375 GM in 0.9 % Sodium Chloride Mini Bag 100 ML IVPB SCH ×3 (02:08→17:00)
[2019-08-05] MEDS: Ondansetron 4 MG/2 ML VIAL IVP PRN ×2 (05:23→17:03)
[2019-08-05] MEDS: *HR* Heparin 5,000 UNIT/ML VIAL SQ SCH ×2 (05:41→17:00)
[2019-08-05 06:26] LABS: Basophils # 0.1 K/mcL (0.0-0.2); Eosinophils # 0.1 K/mcL (0.0-0.6); Eosinophils % 0.8 %; Hematocrit 34.7 % (35.3-44.9); Hemoglobin 11.3 g/dL (11.5-15.4); Immature Granulocytes % 4.4 % (0-4); Lymphocytes # 2.3 K/mcL (0.6-4.6); Lymphocytes % 23.8 %; Mean Corpuscular HGB Conc 32.6 g/dL (31.6-35.5); Mean Corpuscular Hemoglobin 30.7 pg (28.0-33.3); Mean Corpuscular Volume 94.3 fL (83.0-100.0); Monocytes # 0.8 K/mcL (0.0-1.3); Monocytes % 8.7 %; Neutrophils # 5.8 K/mcL (1.6-8.9); Platelet Count 262 K/mcL (140-400); Red Blood Count 3.68 M/mcL (3.82-4.97); Red Cell Distribution Width 13.2 % (11.5-14.5); Segmented Neutrophils % 61.3 %; White Blood Count 9.5 K/mcL (4.3-11.1)
[2019-08-05 06:45] LABS: BUN/Creatinine Ratio 29 (6-26); Blood Urea Nitrogen 21 mg/dL (6-20); Calcium 8.8 mg/dL (8.6-10.3); Carbon Dioxide 18 mEq/L (23-29); Chloride 108 mEq/L (98-107); Glucose 108 mg/dL (70-105); Magnesium 1.8 mg/dL (1.6-2.6); Osmolality,Calculated 290 (280-300); Potassium 3.2 mEq/L (3.5-5.1); Sodium 138 mEq/L (136-145); eGFR For African Americans > 60 (> 60); eGFR For Non-African Americans > 60 (> 60)
[2019-08-05 08:27] LABS: ANA HEp-2 IgG IFA <1:80 (<1:80)
[2019-08-05] MEDS ORDERED: predniSONE 20 MG TABLET PO SCH (09:00)
[2019-08-05] MEDS: ALPRAZolam 0.5 MG TABLET PO SCH ×2 (09:03→20:19)
[2019-08-05] MEDS: lamoTRIgine 100 MG TABLET PO SCH ×2 (09:03→20:19)
[2019-08-05] MEDS: Nystatin Cream 15 GM TUBE TP SCH ×2 (09:04→20:23)
[2019-08-05] MEDS: Topiramate 100 MG TABLET PO SCH ×2 (09:04→20:19)
[2019-08-05] MEDS: Miconazole 2% ointment 141 APPL/141 GM TUBE TP SCH ×3 (09:04→20:23)
[2019-08-05] MEDS: predniSONE 10 MG TABLET PO SCH (09:04)
[2019-08-05] MEDS: QUEtiapine Fumarate 25 MG TABLET PO SCH (20:24)
[2019-08-05] MEDS ORDERED: Melatonin 3 MG TABLET PO SCH (21:00)
[2019-08-06] MEDS: *HR* Heparin 5,000 UNIT/ML VIAL SQ SCH (05:08)
[2019-08-06 05:43] LABS: Hematocrit 36.8 % (35.3-44.9); Mean Corpuscular HGB Conc 32.6 g/dL (31.6-35.5); Mean Corpuscular Hemoglobin 30.9 pg (28.0-33.3); Mean Corpuscular Volume 94.8 fL (83.0-100.0); Platelet Count 273 K/mcL (140-400); Red Blood Count 3.88 M/mcL (3.82-4.97); Red Cell Distribution Width 13.2 % (11.5-14.5); White Blood Count 8.1 K/mcL (4.3-11.1)
[2019-08-06 06:06] LABS: BUN/Creatinine Ratio 19 (6-26); Blood Urea Nitrogen 16 mg/dL (6-20); Carbon Dioxide 17 mEq/L (23-29); Chloride 108 mEq/L (98-107); Glucose 92 mg/dL (70-105); Osmolality,Calculated 285 (280-300); Potassium 3.1 mEq/L (3.5-5.1); Sodium 137 mEq/L (136-145); eGFR For African Americans > 60 (> 60); eGFR For Non-African Americans > 60 (> 60)
[2019-08-06 06:24] LABS: Lymphocytes # 2.1 K/mcL (0.6-4.6); Monocytes # 0.3 K/mcL (0.0-1.3); Neutrophils # 5.7 K/mcL (1.6-8.9)
[2019-08-06 06:25] LABS: Platelet Estimate Normal (Normal); Reactive Lymphocytes Present (Not Present)
[2019-08-06] MEDS ORDERED: Potassium Chloride Elixir 20 MEQ/15 ML UDC PO ONE (07:12)
[2019-08-06 08:12] VITALS: BP 93/61
[2019-08-06] MEDS: lamoTRIgine 100 MG TABLET PO SCH (08:44)
[2019-08-06] MEDS: ALPRAZolam 0.5 MG TABLET PO SCH (08:44)
[2019-08-06] MEDS: predniSONE 10 MG TABLET PO SCH (08:44)
[2019-08-06] MEDS: Miconazole 2% ointment 141 APPL/141 GM TUBE TP SCH (08:45)
[2019-08-06] MEDS: Nystatin Cream 15 GM TUBE TP SCH (08:45)
[2019-08-06] MEDS ORDERED: Scopolamine Patch 1.5 MG PATCH.TD72 TD SCH (09:15)
[2019-08-06] MEDS: Topiramate 100 MG TABLET PO SCH (09:41)
[2019-08-06] MEDS ORDERED: FLU Vac QV 19-20 (6Month+)/PF 0.5 ML SYRINGE IM ONE (09:50)
[2019-08-07 10:22] LABS: Serine Protease-3 Antibody 1 AU/mL (0-19)
== END 2019-08-06 12:26 | disposition home or self-care (01) | DRG 870 ==
LOC: 3BNU 13:55 → EMEROOARM 13:55 → SUATTDRO 18:09 → 3BNU 18:53 → ICNU 07-24 09:00 → 2ANU 08-04 16:25
PROVIDERS: ADMIT Internal Medicine; ATTEND Family Medicine

== ENCOUNTER 2020-01-14 18:34 | Observation (INO) ==
[2020-01-14] MEDS ORDERED: Ondansetron 4 MG/2 ML VIAL IVP STA (18:58)
[2020-01-14] MEDS ORDERED: *HR* FentaNYL (PF) 100 MCG/2 ML VIAL IVP ONE (18:58)
[2020-01-14 19:45] LABS: Bilirubin,Urine Negative (Negative); Blood,Urine Large (Negative); Clarity,Urine Clear (Clear); Color,Urine Light-Yellow (Yellow); Glucose,Urine (UA) Normal (Normal); Ketones,Urine Negative (Negative); Leukocyte Esterase,Urine Moderate (Negative); Mucus,Urine Few per lpf (None-Few); Nitrite,Urine Negative (Negative); Protein,Urine Negative (Neg-Trace); RBC,Urine 30-50 per hpf (0-3); Specific Gravity,Urine 1.015 (1.010-1.025); Squamous Epithelial Cell,Urine Few per hpf (None-Few); Urobilinogen,Urine Normal (Normal)
[2020-01-14] MEDS ORDERED: Ketorolac 15 MG/ML VIAL IVP ONE (20:25)
[2020-01-14 20:46] LABS: Basophils # 0.1 K/mcL (0.0-0.2); Basophils % 0.4 %; Eosinophils % 0.2 %; Hematocrit 43.7 % (35.3-44.9); Hemoglobin 14.5 g/dL (11.5-15.4); Immature Granulocytes % 0.3 % (0-4); Lymphocytes # 1.8 K/mcL (0.6-4.6); Lymphocytes % 14.5 %; Mean Corpuscular HGB Conc 33.2 g/dL (31.6-35.5); Mean Corpuscular Hemoglobin 30.8 pg (28.0-33.3); Mean Corpuscular Volume 92.8 fL (83.0-100.0); Mean Platelet Volume 10.5 fL (9.4-12.4); Monocytes # 0.7 K/mcL (0.0-1.3); Monocytes % 5.7 %; Neutrophils # 9.9 K/mcL (1.6-8.9); Platelet Count 206 K/mcL (140-400); Red Blood Count 4.71 M/mcL (3.82-4.97); Red Cell Distribution Width 12.8 % (11.5-14.5); Segmented Neutrophils % 78.9 %; White Blood Count 12.5 K/mcL (4.3-11.1)
[2020-01-14 21:06] LABS: Albumin 4.6 g/dL (3.5-5.7); Albumin/Globulin Ratio 1.9 (1.1-2.2); Bilirubin,Direct 0.1 mg/dL (0.0-0.2); Bilirubin,Indirect 0.2 mg/dL (0.0-1.0); Bilirubin,Total 0.3 mg/dL (0.3-1.0); Calcium 9.4 mg/dL (8.6-10.3); Globulin 2.4 g/dL (2.4-3.5); Potassium 4.1 mEq/L (3.5-5.1)
[2020-01-14] MEDS ORDERED: Ketorolac 15 MG/ML VIAL IVP PRN (21:59)
[2020-01-14] MEDS ORDERED: Ondansetron 4 MG/2 ML VIAL IVP PRN (21:59)
[2020-01-14] MEDS ORDERED: Naloxone 0.4 MG/ML INJ IVP PRN (21:59)
[2020-01-14] MEDS ORDERED: cefTRIAXone 1,000 MG in Water for inj. (sterile) 10 ML IVP ONE (22:03)
[2020-01-14] MEDS: *HR* Promethazine 25 MG/ML VIAL IVP PRN (22:31)
[2020-01-14] MEDS: Ringers Solution, Lactated 1,000 ML IVC SCH (22:31)
[2020-01-14] MEDS ORDERED: Ondansetron ODT 4 MG TAB.RAPDIS SL PRN (23:15)
[2020-01-15] MEDS: *HR* Promethazine 25 MG/ML VIAL IVP PRN ×2 (03:17→09:44)
[2020-01-15 03:52] LABS: Basophils # 0.1 K/mcL (0.0-0.2); Basophils % 0.5 %; Eosinophils # 0.1 K/mcL (0.0-0.6); Eosinophils % 0.8 %; Hematocrit 41.6 % (35.3-44.9); Hemoglobin 13.7 g/dL (11.5-15.4); Immature Granulocytes % 0.5 % (0-4); Lymphocytes % 27.9 %; Mean Corpuscular HGB Conc 32.9 g/dL (31.6-35.5); Mean Corpuscular Hemoglobin 30.1 pg (28.0-33.3); Mean Corpuscular Volume 91.4 fL (83.0-100.0); Mean Platelet Volume 11.7 fL (9.4-12.4); Monocytes # 0.9 K/mcL (0.0-1.3); Monocytes % 7.9 %; Neutrophils # 6.8 K/mcL (1.6-8.9); Platelet Count 165 K/mcL (140-400); Red Blood Count 4.55 M/mcL (3.82-4.97); Red Cell Distribution Width 12.9 % (11.5-14.5); Segmented Neutrophils % 62.4 %; White Blood Count 10.8 K/mcL (4.3-11.1)
[2020-01-15 04:04] LABS: Potassium 3.9 mEq/L (3.5-5.1)
[2020-01-15] MEDS ORDERED: Famotidine 20 MG/2 ML VIAL IVP ONE (08:40)
[2020-01-15] MEDS ORDERED: cefTRIAXone 1,000 MG in Water for inj. (sterile) 10 ML IVP SCH (09:00)
[2020-01-15] MEDS ORDERED: Ampicillin 2 GM in 0.9 % Sodium Chloride Mini Bag 100 ML IVPB SCH ×2 (09:00)
[2020-01-15] MEDS ORDERED: *HR* FentaNYL (PF) 100 MCG/2 ML VIAL ONE (11:47)
[2020-01-15] MEDS ORDERED: Lidocaine -MPF 2% 2 ML VIAL ONE (11:47)
[2020-01-15] MEDS ORDERED: *HR* Propofol 200 MG/20 ML VIAL IVP ONE (11:47)
[2020-01-15] MEDS ORDERED: *HR* Midazolam HCl 2 MG/2 ML VIAL ONE (11:47)
[2020-01-15] MEDS ORDERED: Ondansetron 4 MG/2 ML VIAL ONE (11:47)
[2020-01-15] MEDS ORDERED: *HR* HYDROmorphone PF 0.5 MG/0.5 ML SYRINGE IVP PRN (12:02)
[2020-01-15] MEDS ORDERED: *HR* FentaNYL (PF) 100 MCG/2 ML VIAL IVP PRN (12:02)
[2020-01-15] MEDS ORDERED: Dexamethasone 4 MG/ML VIAL ONE ×2 (12:28→12:29)
[2020-01-15] MEDS ORDERED: EPHEDrine 50 MG/ML VIAL ONE (12:35)
[2020-01-15] MEDS ORDERED: *HR* Promethazine 25 MG/ML VIAL IVP PRN (13:53)
[2020-01-15] MEDS ORDERED: Ondansetron 4 MG/2 ML VIAL IVP PRN (13:53)
[2020-01-15] MEDS ORDERED: Ringers Solution, Lactated 1,000 ML IVC SCH (13:53)
[2020-01-15] MEDS ORDERED: Ketorolac 15 MG/ML VIAL IVP PRN (13:53)
[2020-01-15] MEDS ORDERED: Naloxone 0.4 MG/ML INJ IVP PRN (13:53)
[2020-01-15] MEDS: Ampicillin 2 GM in 0.9 % Sodium Chloride Mini Bag 100 ML IVPB SCH ×2 (14:20→21:39)
[2020-01-15] MEDS: Ringers Solution, Lactated 1,000 ML IVC SCH (17:56)
[2020-01-16 03:03] LABS: Basophils % 0.5 %; Eosinophils % 0.4 %; Hematocrit 37.5 % (35.3-44.9); Immature Granulocytes % 0.2 % (0-4); Lymphocytes # 1.7 K/mcL (0.6-4.6); Mean Corpuscular Hemoglobin 30.6 pg (28.0-33.3); Mean Corpuscular Volume 95.7 fL (83.0-100.0); Mean Platelet Volume 10.8 fL (9.4-12.4); Monocytes # 0.6 K/mcL (0.0-1.3); Monocytes % 6.8 %; Neutrophils # 5.8 K/mcL (1.6-8.9); Platelet Count 156 K/mcL (140-400); Red Blood Count 3.92 M/mcL (3.82-4.97); Red Cell Distribution Width 12.8 % (11.5-14.5); Segmented Neutrophils % 71.1 %; White Blood Count 8.2 K/mcL (4.3-11.1)
[2020-01-16 03:13] LABS: Calcium 8.3 mg/dL (8.6-10.3); Potassium 3.7 mEq/L (3.5-5.1)
[2020-01-16] MEDS: Ampicillin 2 GM in 0.9 % Sodium Chloride Mini Bag 100 ML IVPB SCH ×2 (03:25→08:16)
[2020-01-16 06:58] VITALS: BP 102/61
[2020-01-16] MEDS ORDERED: cefTRIAXone 1,000 MG in Water for inj. (sterile) 10 ML IVP SCH (09:00)
[2020-01-20 16:38] LABS: Calculi Mass 7 mg
== END 2020-01-16 13:29 | disposition home or self-care (01) ==
LOC: EMEROOARM 18:34 → 3BNU 18:34
PROVIDERS: ADMIT Internal Medicine; ATTEND Internal Medicine

== ENCOUNTER 2020-09-05 02:56 | Observation (INO) ==
[2020-09-05] MEDS ORDERED: 0.9 % Sodium Chloride 1,000 ML IVC ONE (03:52)
[2020-09-05] MEDS ORDERED: Morphine Sulfate 2 MG/ML SYRINGE IVP ONE (03:57)
[2020-09-05] MEDS ORDERED: Ondansetron 4 MG/2 ML VIAL IVP ONE ×2 (03:57→04:51)
[2020-09-05 03:59] LABS: Bilirubin,Urine Negative (Negative); Blood,Urine Large (Negative); Clarity,Urine Ex.Turbid (Clear); Color,Urine Yellow (Yellow); Glucose,Urine (UA) Normal (Normal); Ketones,Urine Negative (Negative); Leukocyte Esterase,Urine Large (Negative); Nitrite,Urine Positive (Negative); Protein,Urine 200 mg/dL (Neg-Trace); Specific Gravity,Urine 1.021 (1.010-1.025); Urobilinogen,Urine Normal (Normal)
[2020-09-05 04:01] LABS: Basophils # 0.1 K/mcL (0.0-0.2); Basophils % 0.4 %; Eosinophils # 0.1 K/mcL (0.0-0.6); Eosinophils % 0.8 %; Hematocrit 43.2 % (35.3-44.9); Hemoglobin 14.3 g/dL (11.5-15.4); Immature Granulocytes % 0.4 % (0-4); Lymphocytes % 14.2 %; Mean Corpuscular HGB Conc 33.1 g/dL (31.6-35.5); Mean Corpuscular Hemoglobin 30.7 pg (28.0-33.3); Mean Corpuscular Volume 92.7 fL (83.0-100.0); Mean Platelet Volume 10.7 fL (9.4-12.4); Monocytes # 0.9 K/mcL (0.0-1.3); Monocytes % 6.1 %; Neutrophils # 11.1 K/mcL (1.6-8.9); Platelet Count 184 K/mcL (140-400); Red Blood Count 4.66 M/mcL (3.82-4.97); Red Cell Distribution Width 11.9 % (11.5-14.5); Segmented Neutrophils % 78.1 %; White Blood Count 14.3 K/mcL (4.3-11.1)
[2020-09-05] MEDS ORDERED: cefTRIAXone 1,000 MG in 0.9 % Sodium Chloride Mini Bag 100 ML IVPB ONE (04:06)
[2020-09-05 04:20] LABS: Alanine Aminotransferase 16 Units/L (7-52); Albumin 4.2 g/dL (3.5-5.7); Albumin/Globulin Ratio 1.6 (1.1-2.2); Alkaline Phosphatase 92 Units/L (34-104); Aspartate Amino Transferase 15 Units/L (13-39); BUN/Creatinine Ratio 24 (6-26); Bilirubin,Direct 0.1 mg/dL (0.0-0.2); Bilirubin,Indirect 0.3 mg/dL (0.0-1.0); Bilirubin,Total 0.4 mg/dL (0.3-1.0); Blood Urea Nitrogen 27 mg/dL (6-20); Calcium 9.1 mg/dL (8.6-10.3); Carbon Dioxide 20 mEq/L (23-29); Chloride 110 mEq/L (98-107); Globulin 2.6 g/dL (2.4-3.5); Glucose 126 mg/dL (70-105); Lipase 24 Units/L (11-82); Osmolality,Calculated 297 (280-300); Potassium 3.5 mEq/L (3.5-5.1); Sodium 140 mEq/L (136-145); Total Protein 6.8 g/dL (6.4-8.9); eGFR For African Americans > 60 (> 60); eGFR For Non-African Americans 52 (> 60)
[2020-09-05] MEDS ORDERED: *HR* HYDROmorphone (PF) 1 MG/ML SYRINGE IVP ONE (04:50)
[2020-09-05] MEDS ORDERED: Ondansetron 4 MG/2 ML VIAL IVP PRN ×3 (05:36→13:52)
[2020-09-05] MEDS ORDERED: Naloxone 0.4 MG/ML INJ IVP PRN ×2 (05:36→13:52)
[2020-09-05] MEDS ORDERED: 0.9 % Sodium Chloride 1,000 ML IVC SCH (05:45)
[2020-09-05] MEDS ORDERED: *HR* Heparin 5,000 UNIT/ML VIAL SQ SCH (06:00)
[2020-09-05] MEDS ORDERED: Sodium Bicarbonate 75 MEQ in 0.45 % Sodium Chloride 1,000 ML IVC SCH (08:30)
[2020-09-05] MEDS ORDERED: Topiramate 100 MG TABLET PO SCH ×2 (09:00→21:00)
[2020-09-05] MEDS ORDERED: lamoTRIgine 100 MG TABLET PO SCH ×2 (09:00→21:00)
[2020-09-05] MEDS ORDERED: Lidocaine -MPF 2% 2 ML VIAL ONE (10:33)
[2020-09-05] MEDS ORDERED: Dexamethasone 4 MG/ML VIAL ONE (10:33)
[2020-09-05] MEDS ORDERED: *HR* FentaNYL (PF) 100 MCG/2 ML VIAL ONE (10:33)
[2020-09-05] MEDS ORDERED: *HR* Propofol 200 MG/20 ML VIAL IVP ONE (10:33)
[2020-09-05] MEDS ORDERED: Ondansetron 4 MG/2 ML VIAL ONE (10:33)
[2020-09-05] MEDS ORDERED: *HR* Midazolam HCl 2 MG/2 ML VIAL ONE (10:33)
[2020-09-05] MEDS ORDERED: Isovue-300 50ML VIAL ONE (10:33)
[2020-09-05] MEDS ORDERED: Acetaminophen IV 1,000 MG/100 ML BAG IVPB ONE (10:41)
[2020-09-05] MEDS ORDERED: *HR* Promethazine 25 MG/ML VIAL IM PRN ×2 (11:11→13:52)
[2020-09-05] MEDS ORDERED: *HR* PHENYLEPHRINE 1,000 MCG/10 ML SYRINGE IVP ONE (12:27)
[2020-09-05] MEDS ORDERED: Ketorolac 30 MG/ML VIAL ONE (12:44)
[2020-09-05] MEDS: Sodium Bicarbonate 75 MEQ in 0.45 % Sodium Chloride 1,000 ML IVC SCH ×2 (14:23→22:34)
[2020-09-05] MEDS: *HR* Heparin 5,000 UNIT/ML VIAL SQ SCH (18:35)
[2020-09-05] MEDS ORDERED: traZODone 50 MG TABLET PO PRN (21:18)
[2020-09-05] MEDS ORDERED: ALPRAZolam 1 MG TABLET PO SCH (21:30)
[2020-09-06] MEDS ORDERED: Acetaminophen 325 MG TABLET PO PRN (03:44)
[2020-09-06] MEDS: *HR* Heparin 5,000 UNIT/ML VIAL SQ SCH (03:54)
[2020-09-06 06:42] LABS: BUN/Creatinine Ratio 16 (6-26); Basophils % 0.3 %; Blood Urea Nitrogen 17 mg/dL (6-20); Calcium 8.4 mg/dL (8.6-10.3); Carbon Dioxide 21 mEq/L (23-29); Chloride 112 mEq/L (98-107); Eosinophils % 0.2 %; Glucose 101 mg/dL (70-105); Hematocrit 35.2 % (35.3-44.9); Immature Granulocytes % 0.5 % (0-4); Lymphocytes # 2.3 K/mcL (0.6-4.6); Lymphocytes % 17.5 %; Magnesium 1.6 mg/dL (1.6-2.6); Mean Corpuscular HGB Conc 32.4 g/dL (31.6-35.5); Mean Corpuscular Hemoglobin 30.9 pg (28.0-33.3); Mean Corpuscular Volume 95.4 fL (83.0-100.0); Mean Platelet Volume 11.2 fL (9.4-12.4); Monocytes # 1.1 K/mcL (0.0-1.3); Monocytes % 8.8 %; Neutrophils # 9.4 K/mcL (1.6-8.9); Osmolality,Calculated 292 (280-300); Phosphorous 2.7 mg/dL (2.7-4.5); Platelet Count 144 K/mcL (140-400); Red Blood Count 3.69 M/mcL (3.82-4.97); Segmented Neutrophils % 72.7 %; Sodium 140 mEq/L (136-145); White Blood Count 12.9 K/mcL (4.3-11.1); eGFR For African Americans > 60 (> 60); eGFR For Non-African Americans 57 (> 60)
[2020-09-06 06:47] LABS: Hemoglobin 11.4 g/dL (11.5-15.4)
[2020-09-06 08:56] VITALS: BP 101/76
[2020-09-06] MEDS ORDERED: cefTRIAXone 1,000 MG in Water for inj. (sterile) 10 ML IVP SCH (09:00)
== END 2020-09-06 11:55 | disposition home or self-care (01) ==
LOC: EMEROOARM 02:56 → 3BNU 02:56 → SUATTDRO 06:13 → 3BNU 06:45
PROVIDERS: ADMIT Internal Medicine; ATTEND Internal Medicine

== ENCOUNTER 2022-04-02 21:34 | Observation (INO) ==
[2022-04-02 22:44] LABS: Basophils % 0.3 %; Eosinophils # 0.1 K/mcL (0.0-0.6); Hematocrit 43.2 % (35.3-44.9); Hemoglobin 14.6 g/dL (11.5-15.4); Immature Granulocytes % 0.6 % (0-4); Lymphocytes # 2.3 K/mcL (0.6-4.6); Lymphocytes % 23.7 %; Mean Corpuscular HGB Conc 33.8 g/dL (31.6-35.5); Mean Corpuscular Hemoglobin 31.3 pg (28.0-33.3); Mean Corpuscular Volume 92.7 fL (83.0-100.0); Mean Platelet Volume 10.9 fL (9.4-12.4); Monocytes # 0.7 K/mcL (0.0-1.3); Monocytes % 7.3 %; Neutrophils # 6.4 K/mcL (1.6-8.9); Platelet Count 177 K/mcL (140-400); Red Blood Count 4.66 M/mcL (3.82-4.97); Red Cell Distribution Width 11.9 % (11.5-14.5); Segmented Neutrophils % 67.1 %; White Blood Count 9.6 K/mcL (4.3-11.1)
[2022-04-02 22:54] LABS: Bacteria,Urine Few per hpf (None-Few); Bilirubin,Urine Negative (Negative); Blood,Urine Negative (Negative); Budding Yeast,Urine Few per hpf (None Seen); Calcium Oxalate Crystals,Urine Present per hpf; Clarity,Urine Turbid (Clear); Color,Urine Yellow (Yellow); Glucose,Urine (UA) Normal (Normal); Ketones,Urine Trace mg/dL (Negative); Leukocyte Esterase,Urine Large (Negative); Mucus,Urine Few per lpf (None-Few); Nitrite,Urine Negative (Negative); Protein,Urine 50 mg/dL (Neg-Trace); Specific Gravity,Urine 1.028 (1.010-1.025); Squamous Epithelial Cell,Urine Moderate per hpf (None-Few); WBC,Urine TNTC per hpf (0-3)
[2022-04-02 23:05] LABS: Albumin 4.3 g/dL (3.5-5.7); Albumin/Globulin Ratio 1.6 (1.1-2.2); Bilirubin,Direct 0.1 mg/dL (0.0-0.2); Bilirubin,Indirect 0.3 mg/dL (0.0-1.0); Bilirubin,Total 0.4 mg/dL (0.3-1.0); Calcium 9.3 mg/dL (8.6-10.3); Globulin 2.7 g/dL (2.4-3.5); Potassium 3.7 mEq/L (3.5-5.1)
[2022-04-03] MEDS ORDERED: Ondansetron 4 MG/2 ML VIAL IVP ONE (00:56)
[2022-04-03] MEDS ORDERED: Ketorolac 30 MG/ML VIAL IVP ONE (00:56)
[2022-04-03] MEDS ORDERED: 0.9 % Sodium Chloride 1,000 ML IVC ONE (00:56)
[2022-04-03] MEDS ORDERED: Iopamidol - 370 500 ML MLS IVP ONE (00:56)
[2022-04-03] MEDS ORDERED: cefTRIAXone 1,000 MG in 0.9 % Sodium Chloride 10 ML IVP ONE (00:57)
[2022-04-03] MEDS ORDERED: *HR* FentaNYL (PF) 100 MCG/2 ML VIAL IVP ONE (01:43)
[2022-04-03] MEDS ORDERED: Morphine Sulfate 2 MG/ML SYRINGE IVP ONE (02:16)
[2022-04-03] MEDS ORDERED: Acetaminophen 325 MG TABLET PO PRN (03:09)
[2022-04-03] MEDS ORDERED: Naloxone 0.4 MG/ML INJ IVP PRN (03:09)
[2022-04-03] MEDS ORDERED: *HR* HYDROmorphone (PF) 1 MG/ML SYRINGE IVP PRN (04:00)
[2022-04-03] MEDS ORDERED: Lidocaine HCL 4 ML Topical Solution (Laryng-O-Jet Kit Sterile Pak) TP ONE (07:26)
[2022-04-03] MEDS ORDERED: *HR* FentaNYL (PF) 100 MCG/2 ML VIAL ONE (07:29)
[2022-04-03] MEDS ORDERED: *HR* Propofol 200 MG/20 ML VIAL IVP ONE (07:29)
[2022-04-03] MEDS ORDERED: Lidocaine -MPF 2% 2 ML VIAL ONE (07:29)
[2022-04-03] MEDS ORDERED: *HR* Succinylcholine 200 MG/10 ML VIAL IVP ONE (07:29)
[2022-04-03] MEDS ORDERED: Ondansetron 4 MG/2 ML VIAL ONE (07:29)
[2022-04-03] MEDS ORDERED: *HR* Midazolam HCl 2 MG/2 ML VIAL ONE (07:30)
[2022-04-03] MEDS ORDERED: *HR* Rocuronium Bromide 50 MG/5 ML VIAL ONE (07:34)
[2022-04-03] MEDS ORDERED: Albuterol 2.5 MG/3 ML NEBULIZER IH PRN (07:35)
[2022-04-03] MEDS ORDERED: *HR* Meperidine 25 MG/ML SYRINGE IVP PRN (07:35)
[2022-04-03] MEDS ORDERED: *HR* HYDROmorphone PF 0.5 MG/0.5 ML SYRINGE IVP PRN (07:35)
[2022-04-03] MEDS ORDERED: Promethazine 6.25 MG in Water for inj. (sterile) 20 ML IVPB PRN (07:35)
[2022-04-03] MEDS ORDERED: Iopamidol - 300 50 ML VIAL ONE (07:42)
[2022-04-03 09:12] VITALS: TEMP 98
[2022-04-03 09:22] VITALS: O2SAT 95
[2022-04-03 09:54] VITALS: BP 102/71; PULSE 73
[2022-04-03 12:05] LABS: Calcium 8.5 mg/dL (8.6-10.3); Magnesium 1.7 mg/dL (1.6-2.6); Phosphorous 1.9 mg/dL (2.7-4.5); Potassium 3.6 mEq/L (3.5-5.1); Thyroid Stimulating Hormone 2.348 mcIU/mL (0.340-5.600)
[2022-04-03 12:38] LABS: Basophils % 0.1 %; Eosinophils % 0.1 %; Hematocrit 38.6 % (35.3-44.9); Immature Granulocytes % 0.4 % (0-4); Lymphocytes # 1.2 K/mcL (0.6-4.6); Lymphocytes % 16.6 %; Mean Corpuscular HGB Conc 33.7 g/dL (31.6-35.5); Mean Corpuscular Hemoglobin 31.2 pg (28.0-33.3); Mean Corpuscular Volume 92.6 fL (83.0-100.0); Mean Platelet Volume 10.4 fL (9.4-12.4); Monocytes # 0.2 K/mcL (0.0-1.3); Monocytes % 2.2 %; Neutrophils # 5.8 K/mcL (1.6-8.9); Platelet Count 161 K/mcL (140-400); Red Blood Count 4.17 M/mcL (3.82-4.97); Red Cell Distribution Width 11.8 % (11.5-14.5); Segmented Neutrophils % 80.6 %; White Blood Count 7.2 K/mcL (4.3-11.1)
[2022-04-03 12:46] LABS: INR 1.1; Prothrombin Time 11.9 Seconds (9.4-12.1)
[2022-04-03] MEDS ORDERED: Ibuprofen 600 MG TABLET PO ONE (14:04)
[2022-04-03] MEDS ORDERED: cefTRIAXone 1,000 MG in 0.9 % Sodium Chloride Mini Bag 100 ML IVPB SCH (18:00)
== END 2022-04-03 15:10 | disposition home or self-care (01) ==
LOC: EMEROOARM 21:34 → 2ANU 21:34 → SUATTDRO 04-03 02:51 → 2ANU 04-03 03:50
PROVIDERS: ADMIT Internal Medicine; ATTEND Internal Medicine